=== PATIENT | female | born 1955 | race Hispanic/Latino ===

== ENCOUNTER 2018-03-29 00:57 | Inpatient (IN) | payer OTHER ==
[~2018-03-29 00:57] MED LIST: AMIDATE IV ONE; ZEMURON IV ONE
[2018-03-29 01:52] LABS: Basophils # (Auto) 0.1 K/mm3 (0.0-0.1); Eosinophils # (Auto) 0.2 K/mm3 (0.0-0.4); Eosinophils % (Auto) 2.3 % (0.0-4.3); Hematocrit 39.3 % (30.3-42.9); Hemoglobin 13.3 gm/dl (10.1-14.3); Lymphocytes # (Auto) 1.9 K/mm3 (1.2-5.4); Lymphocytes % (Auto) 22.4 % (13.4-35.0); Mean Corpuscular HGB Conc 34 % (30-34); Mean Corpuscular Hemoglobin 30 pg (28-32); Mean Corpuscular Volume 88 fl (79-97); Monocytes # (Auto) 0.5 K/mm3 (0.0-0.8); Platelet Count 168 K/mm3 (140-440); Red Blood Count 4.47 M/mm3 (3.65-5.03); Red Cell Distribution Width 13.8 % (13.2-15.2)
[2018-03-29 02:03] LABS: BUN/Creatinine Ratio 19; Blood Urea Nitrogen 15 mg/dL (7-17); Calcium 8.7 mg/dL (8.4-10.2); Hemolysis Index 7
[2018-03-29] MEDS ORDERED: NARCAN 0.4 MG/1 ML IV ONE (02:58)
[2018-03-29 03:07] LABS: Bilirubin,Urine NEG (Negative); Blood,Urine NEG (Negative); Color,Urine Yellow (Yellow); Protein,Urine <15 mg/dL mg/dL (Negative); RBC,Urine < 1.0 /HPF (0.0-6.0); Urobilinogen,Urine < 2.0 mg/dL (<2.0)
[2018-03-29 03:15] LABS: Amphetamine Screen,Urine PRESUMPTIVE NEGATIVE; Cocaine Screen,Urine PRESUMPTIVE NEGATIVE; Methadone Screen,Urine PRESUMPTIVE NEGATIVE
[2018-03-29 03:46] LABS: Benzodiazepines Screen,Urine PRESUMPTIVE POSITIVE; Cannabinoid Screen,Urine PRESUMPTIVE POSITIVE; Opiate Screen,Urine PRESUMPTIVE POSITIVE
--- NOTE | 2018-03-29 03:47 | XRay Report ---
FINAL REPORT EXAM: XR CHEST 1V AP HISTORY: POST INTUBATION TECHNIQUE: A portable view of the chest was obtained. There are no previous studies available for comparison. FINDINGS: The tip of the ET tube is 2 cm above the jennifre. There is an NG tube in good position in the body of the stomach. The heart size is normal. The lungs are not congested. There are no localized infiltrates or effusions. The skeletal structures reveal generalized osteoporosis. IMPRESSION: Satisfactory intubation and placement of NG tube. No evidence of congestion or infiltrates.
[2018-03-29 04:14] LABS: INR 0.74 (0.87-1.13)
[2018-03-29 04:15] LABS: Partial Thromboplastin Time 21.6 Sec. (24.2-36.6)
[2018-03-29] MEDS: COMPAZINE IV ONE ×2 (04:29→04:33)
--- NOTE | 2018-03-29 04:52 | Emergency Department Report ---
History of Present Illness - General Chief Complaint: Overdose Stated Complaint: POSSIBLE OD Time Seen by Provider: 03/29/18 01:35 Source: EMS Mode of arrival: Ambulatory Limitations: Altered Mental Status - History of Present Illness Initial Comments: Patient brought to ER with concerns overdosed on gabapentin and benzos Complaint: intentional overdose - Related Data Allergies Allergy/AdvReac Type Severity Reaction Status Date / Time No Known Allergies Allergy Verified 03/29/18 03:18 ED Review of Systems ROS: Stated complaint: POSSIBLE OD Other details as noted in HPI Comment: Unobtainable due to pts medical conditions ED Past Medical Hx - Social History Smoking Status: Unknown if ever smoked Substance Use Type: Prescribed ED Physical Exam - General Limitations: Altered Mental Status - Other Other exam information: GENERAL: Patient in acute distress, lethargic HEAD: Normocephalic, atraumatic EYES: PERRLA, EOM intact HEART: Regular rate and rhythm, no murmur, S1-S2 are auscultated, pulses are symmetric LUNGS: bilateral breath sounds. No wheezing, rales, rhonchi ABDOMEN: Normal bowel sounds, no tenderness, no rebound, no guarding, no masses , no CVA tenderness MUSCULOSKELETAL: Normal joint range of motion, no redness, no swelling, no tenderness NEUROLOGIC: GCS 8, gross sensation/motor intact SKIN: Skin is warm and dry, no wounds, no rashes ED Course Vital Signs 03/29/18 03/29/18 03/29/18 01:06 01:37 02:24 Temperature 98.2 F Pulse Rate 59 L 70 Respiratory 16 19 18 Rate Blood Pressure 137/78 152/92 O2 Sat by Pulse 96 95 97 Oximetry 03/29/18 03/29/18 03/29/18 03:30 04:05 06:05 Temperature Pulse Rate 90 95 H 94 H Respiratory Rate Blood Pressure 149/89 195/125 93/69 O2 Sat by Pulse 100 100 99 Oximetry - Intubation Time Out Performed: Yes Sedative: Etomidate Paralytic: Rocuronium Laryngoscope: Rosemary Size: 4 ET Tube Size: 7.5 Tube Secured Depth (cm): 22 Tube Secured Location: lips Tube Placement Confirmation: visualized tube passing t, equal breath sounds bilat, no breath sounds over epi, confirmation by capnometr Patient Tolerated Procedure: well Intubation Complications: none ED Medical Decision Making - Lab Data Result diagrams: 03/29/18 01:26 03/29/18 01:26 - EKG Data Interpretation: no acute changes - Radiology Data Radiology results: report reviewed - Medical Decision Making At 0634 Dr. Elizondo hospitalists accepts admission. Critical Care Time: Yes Critical care time in (mins) excluding proc time.: 35 Critical care attestation.: If time is entered above; I have spent that time in minutes in the direct care of this critically ill patient, excluding procedure time. ED Disposition Clinical Impression: Suicidal intent Overdose Qualifiers: Encounter type: initial encounter Injury intent: intentional self-harm Qualified Code(s): T50.902A - Poisoning by unspecified drugs, medicaments and biological substances, intentional self-harm, initial encounter Disposition: DC-09 OP ADMIT IP TO THIS HOSP Is pt being admited?: Yes Condition: Critical Time of Disposition: 06:33
[2018-03-29] MEDS ORDERED: DIPRIVAN 10 MG/ML 1,000 MG/100 ML BOTTLE IV ONE (05:09)
[2018-03-29] MEDS ORDERED: VASELINE LIP THERAPY TP PRN (05:10)
[2018-03-29] MEDS ORDERED: ARTIFICIAL TEARS OPHTH OINT OU PRN (05:10)
--- NOTE | 2018-03-29 05:14 | Cat Scan Report ---
FINAL REPORT EXAM: CT HEAD/BRAIN WO CON HISTORY: Alterted Mental Status TECHNIQUE: Routine axial imaging was obtained of the brain without IV contrast. FINDINGS: There is age related volume loss. The ventricular system is appropriate in size and is symmetric. There is no evidence of acute stroke or hemorrhage. There are no extra-axial fluid collections. The sinuses reveal mild mucosal thickening in the maxillary, ethmoidal and sphenoid sinuses. The mastoid air cells are well pneumatized. The calvarium appears intact. IMPRESSION: Age related volume loss. No acute intracranial process. Mild sinusitis.
[2018-03-29] MEDS ORDERED: DIPRIVAN 10 MG/ML 1,000 MG/100 ML BOTTLE IV SCH (06:00)
[2018-03-29] MEDS ORDERED: NACL 0.9% 1000 ML 1,000 ML ONE ×2 (07:23→14:08)
[2018-03-29] MEDS ORDERED: VERSED IV ONE (07:35)
[2018-03-29] MEDS ORDERED: VERSED IV NR (07:40)
[2018-03-29] MEDS ORDERED: NACL 0.9% 1000 ML 1,000 ML IV ONE ×3 (07:48→14:52)
[2018-03-29] MEDS ORDERED: SUBLIMAZE IV ONE (07:55)
[2018-03-29] MEDS ORDERED: MIDAZOLAM 100 MG in NACL 0.9% 80 ML IV SCH (08:00)
[2018-03-29] MEDS ORDERED: fentaNYL DRIP Premix 2,000 MCG/100 ML BAG IV SCH (08:00)
--- NOTE | 2018-03-29 08:38 | History and Physical Report ---
History of Present Illness Date of examination: 03/29/18 Date of admission: 03/29/18 06:36 Chief complaint: AMS History of present illness: Patient is a 62 yo woman who presented to [facility] via EMS for AMS. Patient was found at home unresponsive. Family stated it could be possible OD on Xanex or clonopin, but not sure, EMS gave 2mg narcan. Patient 96% on 3 liters O2, Upon arrival patient responsive to painful stimuli and mumbling unclear words per Triage note. This is patient first hospitalization in our EMR. PMH: unable to obtain with ETT place PSH: unable to obtain with ETT place SH: unable to obtain with ETT place FH: unable to obtain with ETT place ROS: unable to obtain with ETT in place Medications and Allergies Allergies Allergy/AdvReac Type Severity Reaction Status Date / Time No Known Allergies Allergy Verified 03/29/18 03:18 Home Medications Medication Instructions Recorded Confirmed Last Taken Type Unobtainable 03/29/18 03/29/18 Unknown History Active Meds: Active Medications Hydrophilic Ointment (Vaseline Lip Therapy) 1 applic TP Q2HR PRN PRN Reason: Dry Lips Sodium Chloride (Nacl 0.9% 1000 Ml) 1,000 mls @ 999 mls/hr IV BOLUS ONE Stop: 03/29/18 08:48 Last Admin: 03/29/18 07:26 Dose: 999 mls/hr Fentanyl Citrate (Fentanyl Drip Premix) 2,000 mcg in 100 mls @ 3.515 mls/hr IV TITR JACIEL; Protocol Last Admin: 03/29/18 08:00 Dose: 1 mcg/kg/hr, 3.515 mls/hr Midazolam HCl 100 mg/ Sodium (Chloride) 100 mls @ 2 mls/hr IV TITR JACIEL; Protocol Last Admin: 03/29/18 08:25 Dose: 2 mg/hr, 2 mls/hr Sodium Chloride (Nacl 0.9% 1000 Ml) 1,000 mls @ 999 mls/hr IV BOLUS ONE Stop: 03/29/18 08:56 Last Admin: 03/29/18 08:25 Dose: 999 mls/hr Midazolam HCl (Versed) 2 mg IV ONCE NR Stop: 03/29/18 09:00 Last Admin: 03/29/18 07:47 Dose: 2 mg Multi-Ingred Cream/Lotion/Oil/Oint (Artificial Tears Ophth Oint) 1 applic OU Q4HR PRN PRN Reason: Dry Eye(s) Exam - Physical Exam Narrative exam: GEN: ill appearing, intubated and sedated with fentanyl and versed HEENT: NCAT, ETT and NGT in place NECK: supple, no adenopathy, no thyromegaly, no JVD CVS/HEART: RRR, normal S1S2, pulses present bilaterally CHEST/LUNGS: Symmetrical chest expansion, good air entry bilaterally GI/Abdomen: soft, NTND, good bowel sounds, no guarding or rebound /Bladder: no suprapubic tenderness, no CVA or paraspinal tenderness EXT/Skin: no c/c/e, no obvious rash MSK: unable to access Neuro: unable to access Psych: unable to access - Constitutional Vitals: Temp Pulse Resp BP Pulse Ox 98.4 F 94 H 16 122/77 97 03/29/18 07:14 03/29/18 07:57 03/29/18 07:57 03/29/18 07:57 03/29/18 07:57 Results - Labs CBC & Chem 7: 03/29/18 01:26 03/29/18 01:26 Labs: Abnormal lab results 03/29/18 03/29/18 03/29/18 Range/Units 01:26 01:26 03:47 PT 10.8 L (12.2-14.9) Sec. INR 0.74 L (0.87-1.13) APTT 21.6 L (24.2-36.6) Sec. POC ABG pO2 (80-105) Salicylates < 0.3 L (2.8-20.0) mg/dL Acetaminophen < 5.0 L (10.0-30.0) ug/mL 03/29/18 Range/Units 04:05 PT (12.2-14.9) Sec. INR (0.87-1.13) APTT (24.2-36.6) Sec. POC ABG pO2 221 H (80-105) Salicylates (2.8-20.0) mg/dL Acetaminophen (10.0-30.0) ug/mL Assessment and Plan Patient is a 62 yo woman who presented to [facility] via EMS for AMS. Patient was found at home unresponsive. Family stated it could be possible OD on Xanex or clonopin, but not sure, EMS gave 2mg narcan. Patient 96% on 3 liters O2, Upon arrival patient responsive to painful stimuli and mumbling unclear words per Triage note. This is patient first hospitalization in our EMR. Meet with son Mitch and "" Darrius at bedside: Patient has history of hypertension, migraines, GERD arthritis of the hands s/p bilateral carpal tunnel syndrome, ex smoker, street drug Xanax use. Daughter Danica also lives with patient and has drug addiction according to her brother Mitch and Darrius. 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 Lindsey Garcia gave patient 60 tablets of Clonazepam on 01/29/18, 60 tablets for percocet on 01/29/18 and 60 tablets of Clonzepam again on 03/05/18 * CT head without contrast reported age related volume loss, no acute intracranial process, mild sinusitis (maxillary, ethmoid, sphenoid) * pCXR satisfactory intubation and placement of NG tube, no evidence of congestion or infiltrates * UDS positive for benzodiazepines,opiates, marijuana. -Acute respiratory failure s/p Intubation in ED: consult Pulmonology, closely monitor O2 saturation -Acute toxic encephalopathy with AMS due to suspected drug overdose -Nausea/Vomiting: treat with antiemetics -Abnormal EKG, SR 89, V3-v5 ST Depression: consult Cardiology, repeat troponin -Polysubstance abuse suspected, uses street Xanax -DVT prophylaxis: scd and sq heparin full code CCT 35 minutes
[2018-03-29] MEDS ORDERED: ZOFRAN IV PRN (09:13)
[2018-03-29] MEDS: PROTONIX IV SCH ×2 (10:36→21:58)
--- NOTE | 2018-03-29 11:13 | Consultation ---
History of Present Illness Consult date: 03/29/18 Requesting physician: ELIZ BUCIO Consult reason: other (abnormal EKG) History of present illness: Patient is a 62-year-old was found unresponsive at home. Patient is currently intubated and hemodynamically stable. Working diagnosis was possible overdose with Xanax. Patient was noted to have sinus bradycardia with ST depressions and hence cardiology is being consulted. No further history could be obtained and the patient. Past History Past Medical History: other (could not be obtained) Medications and Allergies Allergies Allergy/AdvReac Type Severity Reaction Status Date / Time No Known Allergies Allergy Verified 03/29/18 03:18 Home Medications Medication Instructions Recorded Confirmed Last Taken Type Unobtainable 03/29/18 03/29/18 Unknown History Active Meds: Active Medications Heparin Sodium (Porcine) (Heparin) 5,000 unit SUB-Q Q12HR JACIEL Hydrophilic Ointment (Vaseline Lip Therapy) 1 applic TP Q2HR PRN PRN Reason: Dry Lips Fentanyl Citrate (Fentanyl Drip Premix) 2,000 mcg in 100 mls @ 3.515 mls/hr IV TITR JACIEL; Protocol Last Admin: 03/29/18 08:00 Dose: 1 mcg/kg/hr, 3.515 mls/hr Midazolam HCl 100 mg/ Sodium (Chloride) 100 mls @ 2 mls/hr IV TITR JACIEL; Protocol Last Admin: 03/29/18 08:25 Dose: 2 mg/hr, 2 mls/hr Multi-Ingred Cream/Lotion/Oil/Oint (Artificial Tears Ophth Oint) 1 applic OU Q4HR PRN PRN Reason: Dry Eye(s) Ondansetron HCl (Zofran) 4 mg IV Q4H PRN PRN Reason: Nausea And Vomiting Pantoprazole Sodium (Protonix) 40 mg IV BID JACIEL Last Admin: 03/29/18 10:36 Dose: 40 mg Review of Systems ROS unobtainable: due to endotracheal tube Physical Examination Vital Signs Temp Pulse Resp BP Pulse Ox 98.2 F 59 L 16 137/78 96 03/29/18 01:06 03/29/18 01:06 03/29/18 01:06 03/29/18 01:06 03/29/18 01:06 Narrative exam: General: Patient intubated Head: Normocephalic, atraumatic Eyes: normal sclera ENT: Mucous membranes moist Neck: trachea midline Respiratory: Breath sounds equal bilaterally, no wheezing, rales, or rhonchi Cardio: S1 and S2 present, no murmurs, rubs, gallops, Abdomen: Normoactive bowel sounds, soft abdomen, Musc: No pitting edema Skin: No rash Results 03/29/18 01:26 03/29/18 01:26 Coagulation 03/29/18 Range/Units 03:47 PT 10.8 L (12.2-14.9) Sec. INR 0.74 L (0.87-1.13) APTT 21.6 L (24.2-36.6) Sec. CBC 03/29/18 Range/Units 01:26 WBC 8.4 (4.5-11.0) K/mm3 RBC 4.47 (3.65-5.03) M/mm3 Hgb 13.3 (10.1-14.3) gm/dl Hct 39.3 (30.3-42.9) % Plt Count 168 (140-440) K/mm3 Lymph # 1.9 (1.2-5.4) K/mm3 Cloud # 0.5 (0.0-0.8) K/mm3 Eos # 0.2 (0.0-0.4) K/mm3 Baso # 0.1 (0.0-0.1) K/mm3 Comprehensive Metabolic Panel 03/29/18 Range/Units 01:26 Sodium 137 (137-145) mmol/L Potassium 4.4 (3.6-5.0) mmol/L Chloride 101.2 (98-107) mmol/L Carbon Dioxide 28 (22-30) mmol/L BUN 15 (7-17) mg/dL Creatinine 0.8 (0.7-1.2) mg/dL Glucose 99 (65-100) mg/dL Calcium 8.7 (8.4-10.2) mg/dL EKG interpretations - EKG Sinus rhythms and dysrhythmias: sinus rhythm Assessment and Plan Impression Change in mental status secondary to drug overdose Respiratory failure status post intubation Abnormal EKG Plan Supportive care 2-D echo We'll continue to follow along with you
[2018-03-29 13:51] LABS: Chol/HDL Ratio 6.08 %
--- NOTE | 2018-03-29 17:34 | Consultation ---
History of Present Illness Consult date: 03/29/18 Requesting physician: ELZI BUCIO Reason for consult: other (Overdose on Benzo) History of present illness: 62 y/o female brought in by EMS after being found down and concern for overdose with benzos. Past History Past Medical History: other (could not be obtained) Past Surgical History: Other (unable to be obtained) Social history: other (unable to be obtained) Family history: other (unable to be obtained) Medications and Allergies Allergies Allergy/AdvReac Type Severity Reaction Status Date / Time No Known Allergies Allergy Verified 03/29/18 03:18 Home Medications Medication Instructions Recorded Confirmed Last Taken Type Unobtainable 03/29/18 03/29/18 Unknown History Active Meds: Active Medications Heparin Sodium (Porcine) (Heparin) 5,000 unit SUB-Q Q12HR JACIEL Hydrophilic Ointment (Vaseline Lip Therapy) 1 applic TP Q2HR PRN PRN Reason: Dry Lips Fentanyl Citrate (Fentanyl Drip Premix) 2,000 mcg in 100 mls @ 3.515 mls/hr IV TITR JACIEL; Protocol Last Titration: 03/29/18 14:30 Dose: 0 mcg/kg/hr, 0 mls/hr Midazolam HCl 100 mg/ Sodium (Chloride) 100 mls @ 2 mls/hr IV TITR JACIEL; Protocol Last Titration: 03/29/18 14:30 Dose: 0 mg/hr, 0 mls/hr Multi-Ingred Cream/Lotion/Oil/Oint (Artificial Tears Ophth Oint) 1 applic OU Q4HR PRN PRN Reason: Dry Eye(s) Ondansetron HCl (Zofran) 4 mg IV Q4H PRN PRN Reason: Nausea And Vomiting Pantoprazole Sodium (Protonix) 40 mg IV BID JACIEL Last Admin: 03/29/18 10:36 Dose: 40 mg Review of Systems ROS unobtainable: due to endotracheal tube, due to mental status Physical Examination Vital signs: Vital Signs Temp Pulse Resp BP Pulse Ox 98.2 F 59 L 16 137/78 96 03/29/18 01:06 03/29/18 01:06 03/29/18 01:06 03/29/18 01:06 03/29/18 01:06 General appearance: other (orally intubated and sedated.) Eyes: non-icteric ENT: other (orally intubated) Neck: other Effort: normal Ascultation: Bilateral: clear Percussion: Bilateral: not dull Cardiovascular: regular rate and rhythm Gastrointestinal: normoactive bowel sounds, soft, non-tender Extremities: no edema, pink and warm Musculoskeletal: no deformities unable to assess Results - Laboratory Findings CBC and BMP: 03/29/18 01:26 03/29/18 01:26 ABG POC ABG pH 7.436 (7.35-7.45) 03/29/18 04:05 POC ABG pCO2 36.8 (35-45) 03/29/18 04:05 POC ABG pO2 221 (80-105) H 03/29/18 04:05 POC ABG HCO3 24.7 03/29/18 04:05 POC ABG Total CO2 26 03/29/18 04:05 POC ABG O2 Sat 100 03/29/18 04:05 PT/INR, D-dimer PT 10.8 Sec. (12.2-14.9) L 03/29/18 03:47 INR 0.74 (0.87-1.13) L 03/29/18 03:47 Abnormal lab findings: Abnormal Labs 03/29/18 03/29/18 03/29/18 01:26 01:26 03:47 PT 10.8 L INR 0.74 L APTT 21.6 L POC ABG pO2 Troponin T Triglycerides Cholesterol LDL Cholesterol Direct HDL Cholesterol Salicylates < 0.3 L Acetaminophen < 5.0 L 03/29/18 03/29/18 04:05 13:09 PT INR APTT POC ABG pO2 221 H Troponin T 0.749 H* D Triglycerides 196 H Cholesterol 219 H LDL Cholesterol Direct 169 H HDL Cholesterol 36 L Salicylates Acetaminophen - Diagnostic Findings Chest x-ray: image reviewed (no acute pulmonary dieases seen) Assessment and Plan 62 y/o female with possible suicide attempt and overdose with benzo's. 1. patient started on sedation after intubation. Not sure why. No GCS documented that I can find. Will stop all sedation and extubate 2. Nees psych consult once extubated 3. 1:1 care and patient will need to be 1013 CCT 31 minutes.
--- NOTE | 2018-03-30 03:21 | XRay Report ---
FINAL REPORT PROCEDURE: XR CHEST 1V AP TECHNIQUE: Chest radiograph anteroposterior view. CPT 62471 HISTORY: follow up respiratory failure COMPARISON: 03/29/2018 FINDINGS: Heart: Normal. Mediastinum/Vessels: Normal. Lungs/Pleural space: Normal. Bony thorax: No acute osseous abnormality. Life support devices: None. IMPRESSION: No acute cardiopulmonary abnormality.
[2018-03-30 04:51] LABS: Hematocrit 38.6 % (30.3-42.9); Mean Corpuscular HGB Conc 34 % (30-34); Mean Corpuscular Hemoglobin 30 pg (28-32); Mean Corpuscular Volume 88 fl (79-97); Platelet Count 157 K/mm3 (140-440); Red Blood Count 4.39 M/mm3 (3.65-5.03); Red Cell Distribution Width 14.1 % (13.2-15.2)
[2018-03-30 04:55] LABS: Calcium 7.6 mg/dL (8.4-10.2)
[2018-03-30] MEDS: HEPARIN SUB-Q SCH ×2 (09:18→22:10)
[2018-03-30] MEDS: PROTONIX IV SCH ×2 (09:19→22:10)
--- NOTE | 2018-03-30 11:03 | Progress Note ---
Assessment and Plan Assessment and plan: Patient is a 62 yo woman who presented to [facility] via EMS for AMS. Patient was found at home unresponsive. Family stated it could be possible OD on Xanex or clonopin, but not sure, EMS gave 2mg narcan. Patient 96% on 3 liters O2, Upon arrival patient responsive to painful stimuli and mumbling unclear words per Triage note. This is patient first hospitalization in our EMR. Meet with son Mitch and "" Darrius at bedside: Patient has history of hypertension, migraines, GERD arthritis of the hands s/p bilateral carpal tunnel syndrome, ex smoker, street drug Xanax use. Daughter Danica also lives with patient and has drug addiction according to her brother Mitch and Darrius. 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 Lindsey Garcia gave patient 60 tablets of Clonazepam on 01/29/18, 60 tablets for percocet on 01/29/18 and 60 tablets of Clonzepam again on 03/05/18 * CT head without contrast reported age related volume loss, no acute intracranial process, mild sinusitis (maxillary, ethmoid, sphenoid) * pCXR satisfactory intubation and placement of NG tube, no evidence of congestion or infiltrates * UDS positive for benzodiazepines,opiates, marijuana. -Acute respiratory failure s/p Intubation in ED: consult Pulmonology, closely monitor O2 saturation -Acute toxic encephalopathy with AMS due to suspected drug overdose -Nausea/Vomiting: treat with antiemetics -Abnormal EKG, SR 89, V3-v5 ST Depression: consult Cardiology, repeat troponin -Polysubstance abuse suspected, uses street Xanax -DVT prophylaxis: scd and sq heparin full code History Interval history: Patient was seen and examined. Follow-up on current diagnosis respiratory failure due to drug overdose. Overnight uneventful. Patient denies any chest pain, shortness breath, nausea/vomiting or severe headaches. Imaging, nursing note, chart, labs and old chart reviewed. Discussed with patient. Extubated , doing well. Says she overdose unintentional on Xanax from a "friend" while still taking her prescribe Clonazepam. She denies SI. Hospitalist Physical - Physical exam Narrative exam: GEN: WDWN, NAD, Awake, Alert, Orientated x 3, extubated 03/29/18 HEENT: NCAT, EOMI, PERRL, OP Clear NECK: supple, no adenopathy, no thyromegaly, no JVD CVS/HEART: RRR, normal S1S2, pulses present bilaterally CHEST/LUNGS: CTA B, Symmetrical chest expansion, good air entry bilaterally GI/Abdomen: soft, NTND, good bowel sounds, no guarding or rebound /Bladder: no suprapubic tenderness, no CVA or paraspinal tenderness EXT/Skin: no c/c/e, no obvious rash MSK: FROM x 4 Neuro: CN 2-12 grossly intact, no new focal deficits Psych: calm - Constitutional Vitals: Temp Pulse Resp BP Pulse Ox 98.8 F 90 16 136/77 97 03/30/18 08:00 03/30/18 10:21 03/30/18 10:21 03/30/18 10:21 03/30/18 10:21 Results - Labs CBC & Chem 7: 03/30/18 04:01 03/30/18 04:01 Labs: Laboratory Last Values WBC 17.7 K/mm3 (4.5-11.0) H 03/30/18 04:01 RBC 4.39 M/mm3 (3.65-5.03) 03/30/18 04:01 Hgb 13.0 gm/dl (10.1-14.3) 03/30/18 04:01 Hct 38.6 % (30.3-42.9) 03/30/18 04:01 MCV 88 fl (79-97) 03/30/18 04:01 MCH 30 pg (28-32) 03/30/18 04:01 MCHC 34 % (30-34) 03/30/18 04:01 RDW 14.1 % (13.2-15.2) 03/30/18 04:01 Plt Count 157 K/mm3 (140-440) 03/30/18 04:01 Lymph % (Auto) 22.4 % (13.4-35.0) 03/29/18 01:26 [place] % (Auto) 6.0 % (0.0-7.3) 03/29/18 01:26 Eos % (Auto) 2.3 % (0.0-4.3) 03/29/18 01:26 Baso % (Auto) 1.0 % (0.0-1.8) 03/29/18 01:26 Lymph # 1.9 K/mm3 (1.2-5.4) 03/29/18 01:26 [place] # 0.5 K/mm3 (0.0-0.8) 03/29/18 01: Eos # 0.2 K/mm3 (0.0-0.4) 03/29/18 01:26 Baso # 0.1 K/mm3 (0.0-0.1) 03/29/18 01:26 Seg Neutrophils % 68.3 % (40.0-70.0) 03/29/18 01: Seg Neutrophils # 5.7 K/mm3 (1.8-7.7) 03/29/18 01:26 PT 10.8 Sec. (12.2-14.9) L 03/29/18 03:47 INR 0.74 (0.87-1.13) L 03/29/18 03:47 APTT 21.6 Sec. (24.2-36.6) L 03/29/18 03:47 POC ABG pH 7.436 (7.35-7.45) 03/29/18 04:05 POC ABG pCO2 36.8 (35-45) 03/29/18 04:05 POC ABG pO2 221 (80-105) H 03/29/18 04:05 POC ABG HCO3 24.7 03/29/18 04:05 POC ABG Total CO2 26 03/29/18 04:05 POC ABG O2 Sat 100 03/29/18 04:05 POC ABG Base Excess 1 03/29/18 04:05 FiO2 80 % 03/29/18 04:05 Sodium 142 mmol/L (137-145) 03/30/18 04:01 Potassium 4.2 mmol/L (3.6-5.0) 03/30/18 04:01 Chloride 102.6 mmol/L (98-107) 03/30/18 04:01 Carbon Dioxide 22 mmol/L (22-30) 03/30/18 04:01 Anion Gap 22 mmol/L 03/30/18 04:01 BUN 19 mg/dL (7-17) H 03/30/18 04:01 Creatinine 1.0 mg/dL (0.7-1.2) 03/30/18 04:01 Estimated GFR 56 ml/min 03/30/18 04:01 BUN/Creatinine Ratio 19 % 03/30/18 04:01 Glucose 111 mg/dL (65-100) H 03/30/18 04:01 POC Glucose 95 (70-105) 03/29/18 03:09 Calcium 7.6 mg/dL (8.4-10.2) L 03/30/18 04:01 Ammonia 45.0 umol/L (25-60) 03/29/18 03:47 Total Creatine Kinase 72 units/L (30-135) 03/29/18 03:47 Troponin T 0.378 ng/mL (0.00-0.029) H* D 03/29/18 18:15 Triglycerides 196 mg/dL (2-149) H 03/29/18 13:09 Cholesterol 219 mg/dL (50-199) H 03/29/18 13:09 LDL Cholesterol Direct 169 mg/dL (50-130) H 03/29/18 13:09 HDL Cholesterol 36 mg/dL (40-59) L 03/29/18 13:09 Cholesterol/HDL Ratio 6.08 % 03/29/18 13:09 TSH 0.720 mlU/mL (0.270-4.200) 03/30/18 04:01 Urine Color Yellow (Yellow) 03/29/18 02:50 Urine Turbidity Clear (Clear) 03/29/18 02:50 Urine pH 6.0 (5.0-7.0) 03/29/18 02:50 Ur Specific [place] 1.009 (1.003-1.030) 03/29/18 02:50 Urine Protein <15 mg/dl mg/dL (Negative) 03/29/18 02:50 Urine Glucose (UA) Neg mg/dL (Negative) 03/29/18 02:50 Urine Ketones Neg mg/dL (Negative) 03/29/18 02:50 Urine Blood Neg (Negative) 03/29/18 02:50 Urine Nitrite Neg (Negative) 03/29/18 02:50 Urine Bilirubin Neg (Negative) 03/29/18 02:50 Urine Urobilinogen < 2.0 mg/dL (<2.0) 03/29/18 02:50 Ur Leukocyte Esterase Neg (Negative) 03/29/18 02:50 Urine WBC (Auto) 1.0 /HPF (0.0-6.0) 03/29/18 02:50 Urine RBC (Auto) < 1.0 /HPF (0.0-6.0) 03/29/18 02:50 Salicylates < 0.3 mg/dL (2.8-20.0) L 03/29/18 01:26 Urine Opiates Screen Presumptive positive 03/29/18 02:50 Urine Methadone Screen Presumptive negative 03/29/18 02:50 Acetaminophen < 5.0 ug/mL (10.0-30.0) L 03/29/18 01:26 Ur Barbiturates Screen Presumptive negative 03/29/18 02:50 Ur Phencyclidine Scrn Presumptive negative 03/29/18 02:50 Ur Amphetamines Screen Presumptive negative 03/29/18 02:50 U Benzodiazepines Scrn Presumptive positive 03/29/18 02:50 Urine Cocaine Screen Presumptive negative 03/29/18 02:50 U Marijuana (THC) Screen Presumptive positive 03/29/18 02:50 Drugs of Abuse Note Disclamer 03/29/18 02:50 Plasma/Serum Alcohol < 0.01 % (0-0.07) 03/29/18 01:26
--- NOTE | 2018-03-30 11:46 | Progress Note ---
Assessment and Plan Impression Change in mental status secondary to drug overdose much improved Respiratory failure status post intubation, extubated now Abnormal EKG [place] Elevated troponins Plan Supportive care 2-D echo Stress test prior to DC Subjective Date of service: 03/30/18 Principal diagnosis: Xanax overdose Interval history: Patient extubated looks much better no chest pain Objective Vital Signs Temp Pulse Pulse Resp BP Pulse Ox 03/30/18 10:21 90 16 136/77 97 03/30/18 10:11 93 H 20 136/77 97 03/30/18 10:00 93 H 20 136/77 99 03/30/18 09:52 98 03/30/18 09:51 89 19 136/70 97 03/30/18 09:41 90 16 136/70 99 03/30/18 09:30 91 H 21 136/70 98 03/30/18 09:21 91 H 15 132/78 97 03/30/18 09:11 88 14 132/78 98 03/30/18 09:00 91 H 12 132/78 98 03/30/18 08:51 82 27 H 128/71 96 03/30/18 08:41 80 27 H 128/71 98 03/30/18 08:30 80 24 128/71 99 03/30/18 08:21 80 18 133/71 99 03/30/18 08:11 81 31 H 133/71 96 03/30/18 08:00 98.8 F 86 23 131/72 98 03/30/18 07:51 82 16 133/71 97 03/30/18 07:41 86 29 H 133/71 97 03/30/18 07:30 86 19 133/71 98 03/30/18 07:21 85 14 142/74 99 05 07:11 83 23 142/74 99 03/30/18 07:00 80 26 H 130/73 98 03/30/18 06:51 84 24 142/74 98 03/30/18 06:41 90 28 H 142/74 96 03/30/18 06:31 86 25 H 142/74 97 0518 06:21 86 21 129/71 96 0518 06:11 89 14 129/71 97 03/30/18 06:00 89 16 129/71 97 03/30/18 05:51 96 H 16 122/61 98 08/05/18 05:41 84 31 H 122/61 97 08/05/18 05:30 83 29 H 122/61 98 08/05/18 05:21 88 20 136/82 98 05/18 05:11 87 23 136/82 97 08/05/18 05:00 88 25 H 136/82 98 /05/18 04:51 93 H 16 127/74 97 /05/18 04:41 85 25 H 127/74 95 /05/18 04:30 85 25 H 127/74 95 /05/18 04:21 82 31 H 133/76 94 /05/18 04:11 89 24 133/76 96 /05/18 04:00 84 84 19 133/76 98 /05/18 03:51 86 29 H 137/77 96 /05/18 03:41 88 30 H 137/77 97 /05/18 03:30 87 29 H 137/77 97 /05/18 03:21 87 26 H 143/82 97 /05/18 03:11 89 31 H 143/82 96 /05/18 03:00 88 29 H 143/82 96 /05/18 02:51 96 H 20 134/83 97 /05/18 02:41 95 H 30 H 134/83 96 /05/18 02:30 74 30 H 134/83 95 /05/18 02:21 87 32 H 122/79 95 /05/18 02:11 89 29 H 122/79 96 /05/18 02:00 89 32 H 122/79 95 /05/18 01:51 90 31 H 126/79 95 /05/18 01:41 90 31 H 126/79 95 /05/18 01:30 89 33 H 126/79 95 08/05/18 01:21 89 31 H 128/72 95 08/05/18 01:11 89 30 H 128/72 95 /05/18 01:00 88 29 H 128/72 95 08/05/18 00:51 88 30 H 125/74 95 /05/18 00:41 91 H 29 H 125/74 96 08/05/18 00:30 91 H 35 H 125/74 96 08/05/18 00:21 95 H 18 127/79 96 /05/18 00:11 96 H 16 127/79 98 03/30/18 00:00 95 H 95 H 12 127/79 97 03/29/18 23:50 96 H 33 H 133/79 97 03/29/18 23:40 98 H 21 57/29 03/29/18 23:31 99 H 25 H 113/68 97 03/29/18 23:21 19 127/72 96 03/29/18 23:11 12 73/43 96 03/29/18 23:01 105 H 39 H 127/72 95 03/29/18 22:51 97 H 41 H 127/72 95 03/29/18 22:41 99 H 31 H 127/72 95 03/29/18 22:30 96 H 38 H 127/72 94 03/29/18 22:21 96 H 35 H 123/78 95 03/29/18 22:11 96 H 31 H 123/78 94 03/29/18 22:00 98 H 13 123/78 95 03/29/18 21:51 98 H 18 141/83 97 03/29/18 21:41 99 H 25 H 141/83 94 03/29/18 21:30 103 H 42 H 141/83 94 03/29/18 21:21 100 H 45 H 127/80 94 03/29/18 21:11 102 H 26 H 137/79 95 03/29/18 21:00 99 H 20 137/79 94 03/29/18 20:51 105 H 21 127/80 93 03/29/18 20:48 94 03/29/18 20:41 103 H 39 H 127/80 95 03/29/18 20:30 102 H 35 H 127/80 94 03/29/18 20:21 100 H 28 H 125/70 95 03/29/18 20:11 102 H 33 H 125/70 94 03/29/18 20:00 103 H 103 H 32 H 131/74 93 03/29/18 19:51 101 H 40 H 131/74 94 03/29/18 19:41 104 H 41 H 131/74 93 03/29/18 19:30 101 H 39 H 131/74 90 03/29/18 19:21 104 H 41 H 122/82 93 03/29/18 19:11 109 H 32 H 122/82 93 03/29/18 19:01 104 H 44 H 122/76 92 03/29/18 18:51 104 H 40 H 122/76 94 03/29/18 18:41 104 H 22 122/76 95 03/29/18 18:30 104 H 39 H 122/76 89 03/29/18 18:21 103 H 26 H 134/83 93 03/29/18 18:11 105 H 21 134/83 94 03/29/18 18:00 107 H 44 H 134/83 89 03/29/18 17:51 107 H 43 H 129/82 95 03/29/18 17:41 106 H 42 H 129/82 94 03/29/18 17:30 106 H 22 120/80 93 03/29/18 16:12 93 - Physical Examination Narrative exam: General: Patient alert in no acute distress Head: Normocephalic, atraumatic Eyes: normal sclera ENT: Mucous membranes moist Neck: trachea midline Respiratory: Breath sounds equal bilaterally, no wheezing, rales, or rhonchi Cardio: S1 and S2 present, no murmurs, rubs, gallops, Abdomen: Normoactive bowel sounds, soft abdomen, Musc: No pitting edema Skin: No rash - Labs and Meds Lipids 03/29/18 Range/Units 13:09 Triglycerides 196 H (2-149) mg/dL Cholesterol 219 H (50-199) mg/dL HDL Cholesterol 36 L (40-59) mg/dL Cholesterol/HDL Ratio 6.08 % CBC 03/30/18 Range/Units 04:01 WBC 17.7 H (4.5-11.0) K/mm3 RBC 4.39 (3.65-5.03) M/mm3 Hgb 13.0 (10.1-14.3) gm/dl Hct 38.6 (30.3-42.9) % Plt Count 157 (140-440) K/mm3 Comprehensive Metabolic Panel 03/30/18 Range/Units 04:01 Sodium 142 (137-145) mmol/L Potassium 4.2 (3.6-5.0) mmol/L Chloride 102.6 (98-107) mmol/L Carbon Dioxide 22 (22-30) mmol/L BUN 19 H (7-17) mg/dL Creatinine 1.0 (0.7-1.2) mg/dL Glucose 111 H (65-100) mg/dL Calcium 7.6 L (8.4-10.2) mg/dL - EKG Sinus rhythms and dysrhythmias: sinus rhythm
--- NOTE | 2018-03-30 12:41 | Progress Note ---
Assessment and Plan 62 y/o female with possible suicide attempt and overdose with benzo's. 1. Wean FiO2 for sats >88% 2. Needs Psych consult evaluation 3. Follow up cards recs 4. Stable for transfer out of unit. Will likely sign off once on the floor. Subjective Date of service: 03/30/18 Principal diagnosis: Xanax overdose Interval history: Successful extubation on yesterday. Stable. Currently undergoing 2D echo. Objective Vital Signs - 12hr 03/30/18 03/30/18 03/30/18 00:41 00:51 01:00 Temperature Pulse Rate 91 H 88 88 Pulse Rate [ From Monitor] Respiratory 29 H 30 H 29 H Rate Blood Pressure 125/74 125/74 128/72 O2 Sat by Pulse 96 95 95 Oximetry 03/30/18 03/30/18 03/30/18 01:11 01:21 01:30 Temperature Pulse Rate 89 89 89 Pulse Rate [ From Monitor] Respiratory 30 H 31 H 33 H Rate Blood Pressure 128/72 128/72 126/79 O2 Sat by Pulse 95 95 95 Oximetry 03/30/18 03/30/18 03/30/18 01:41 01:51 02:00 Temperature Pulse Rate 90 90 89 Pulse Rate [ From Monitor] Respiratory 31 H 31 H 32 H Rate Blood Pressure 126/79 126/79 122/79 O2 Sat by Pulse 95 95 95 Oximetry 03/30/18 03/30/18 03/30/18 02:11 02:21 02:30 Temperature Pulse Rate 89 87 74 Pulse Rate [ From Monitor] Respiratory 29 H 32 H 30 H Rate Blood Pressure 122/79 122/79 134/83 O2 Sat by Pulse 96 95 95 Oximetry 03/30/18 03/30/18 03/30/18 02:41 02:51 03:00 Temperature Pulse Rate 95 H 96 H 88 Pulse Rate [ From Monitor] Respiratory 30 H 20 29 H Rate Blood Pressure 134/83 134/83 143/82 O2 Sat by Pulse 96 97 96 Oximetry 03/30/18 03/30/18 03/30/18 03:11 03:21 03:30 Temperature Pulse Rate 89 87 87 Pulse Rate [ From Monitor] Respiratory 31 H 26 H 29 H Rate Blood Pressure 143/82 143/82 137/77 O2 Sat by Pulse 96 97 97 Oximetry 08/05/18 08/05/18 08/05/18 03:41 03:51 04:00 Temperature Pulse Rate 88 86 84 Pulse Rate [ 84 From Monitor] Respiratory 30 H 29 H 19 Rate Blood Pressure 137/77 137/77 133/76 O2 Sat by Pulse 97 96 98 Oximetry 03/30/18 03/30/18 03/30/18 04:11 04:21 04:30 Temperature Pulse Rate 89 82 85 Pulse Rate [ From Monitor] Respiratory 24 31 H 25 H Rate Blood Pressure 133/76 133/76 127/74 O2 Sat by Pulse 96 94 95 Oximetry 03/30/18 03/30/18 03/30/18 04:41 04:51 05:00 Temperature Pulse Rate 85 93 H 88 Pulse Rate [ From Monitor] Respiratory 25 H 16 25 H Rate Blood Pressure 127/74 127/74 136/82 O2 Sat by Pulse 95 97 98 Oximetry 03/30/18 03/30/18 03/30/18 05:11 05:21 05:30 Temperature Pulse Rate 87 88 83 Pulse Rate [ From Monitor] Respiratory 23 20 29 H Rate Blood Pressure 136/82 136/82 122/61 O2 Sat by Pulse 97 98 98 Oximetry 03/30/18 03/30/18 03/30/18 05:41 05:51 06:00 Temperature Pulse Rate 84 96 H 89 Pulse Rate [ From Monitor] Respiratory 31 H 16 16 Rate Blood Pressure 122/61 122/61 129/71 O2 Sat by Pulse 97 98 97 Oximetry 03/30/18 03/30/18 03/30/18 06:11 06:21 06:31 Temperature Pulse Rate 89 86 86 Pulse Rate [ From Monitor] Respiratory 14 21 25 H Rate Blood Pressure 129/71 129/71 142/74 O2 Sat by Pulse 97 96 97 Oximetry 03/30/18 03/30/18 03/30/18 06:41 06:51 07:00 Temperature Pulse Rate 90 84 80 Pulse Rate [ From Monitor] Respiratory 28 H 24 26 H Rate Blood Pressure 142/74 142/74 130/73 O2 Sat by Pulse 96 98 98 Oximetry 03/30/18 03/30/18 03/30/18 07:11 07:21 07:30 Temperature Pulse Rate 83 85 86 Pulse Rate [ From Monitor] Respiratory 23 14 19 Rate Blood Pressure 142/74 142/74 133/71 O2 Sat by Pulse 99 99 98 Oximetry 03/30/18 03/30/18 03/30/18 07:41 07:51 08:00 Temperature 98.8 F Pulse Rate 86 82 86 Pulse Rate [ From Monitor] Respiratory 29 H 16 23 Rate Blood Pressure 133/71 133/71 131/72 O2 Sat by Pulse 97 97 98 Oximetry 03/30/18 03/30/18 03/30/18 08:11 08:21 08:30 Temperature Pulse Rate 81 80 80 Pulse Rate [ From Monitor] Respiratory 31 H 18 24 Rate Blood Pressure 133/71 133/71 128/71 O2 Sat by Pulse 96 99 99 Oximetry 03/30/18 03/30/18 03/30/18 08:41 08:51 09:00 Temperature Pulse Rate 80 82 91 H Pulse Rate [ From Monitor] Respiratory 27 H 27 H 12 Rate Blood Pressure 128/71 128/71 132/78 O2 Sat by Pulse 98 96 98 Oximetry 03/30/18 03/30/18 03/30/18 09:11 09:21 09:30 Temperature Pulse Rate 88 91 H 91 H Pulse Rate [ From Monitor] Respiratory 14 15 21 Rate Blood Pressure 132/78 132/78 136/70 O2 Sat by Pulse 98 97 98 Oximetry 03/30/18 03/30/18 03/30/18 09:41 09:51 09:52 Temperature Pulse Rate 90 89 Pulse Rate [ From Monitor] Respiratory 16 19 Rate Blood Pressure 136/70 136/70 O2 Sat by Pulse 99 97 98 Oximetry 03/30/18 03/30/18 03/30/18 10:00 10:11 10:21 Temperature Pulse Rate 93 H 93 H 90 Pulse Rate [ From Monitor] Respiratory 20 20 16 Rate Blood Pressure 136/77 136/77 136/77 O2 Sat by Pulse 99 97 97 Oximetry 03/30/18 12:00 Temperature 98.4 F Pulse Rate Pulse Rate [ From Monitor] Respiratory Rate Blood Pressure O2 Sat by Pulse Oximetry Constitutional: no acute distress, alert Eyes: non-icteric Neck: other Effort: normal Ascultation: Bilateral: clear Percussion: Bilateral: not dull Cardiovascular: regular rate and rhythm Gastrointestinal: normoactive bowel sounds, soft, non-tender Extremities: no edema, pink and warm Neurologic: unable to assess CBC and BMP: 03/30/18 04:01 03/30/18 04:01 ABG, PT/INR, D-dimer: ABG POC ABG pH 7.436 (7.35-7.45) 03/29/18 04:05 POC ABG pCO2 36.8 (35-45) 03/29/18 04:05 POC ABG pO2 221 (80-105) H 03/29/18 04:05 POC ABG HCO3 24.7 03/29/18 04:05 POC ABG Total CO2 26 03/29/18 04:05 POC ABG O2 Sat 100 03/29/18 04:05 PT/INR, D-dimer PT 10.8 Sec. (12.2-14.9) L 03/29/18 03:47 INR 0.74 (0.87-1.13) L 03/29/18 03:47 Abnormal lab findings: Abnormal Labs 03/29/18 03/29/18 03/29/18 01:26 01:26 03:47 WBC PT 10.8 L INR 0.74 L APTT 21.6 L POC ABG pO2 BUN Glucose Calcium Troponin T Triglycerides Cholesterol LDL Cholesterol Direct HDL Cholesterol Salicylates < 0.3 L Acetaminophen < 5.0 L 03/29/18 03/29/18 03/29/18 04:05 13:09 18:15 WBC PT INR APTT POC ABG pO2 221 H BUN Glucose Calcium Troponin T 0.749 H* D 0.378 H* D Triglycerides 196 H Cholesterol 219 H LDL Cholesterol Direct 169 H HDL Cholesterol 36 L Salicylates Acetaminophen 03/30/18 03/30/18 04:01 04:01 WBC 17.7 H PT INR APTT POC ABG pO2 BUN 19 H Glucose 111 H Calcium 7.6 L Troponin T Triglycerides Cholesterol LDL Cholesterol Direct HDL Cholesterol Salicylates Acetaminophen
[2018-03-30] MEDS ORDERED: CHLORASEPTIC MM PRN (22:55)
[2018-03-30] MEDS ORDERED: PROVENTIL IH ONE (23:00)
[2018-03-31 05:43] LABS: Hematocrit 37.1 % (30.3-42.9); Hemoglobin 12.5 gm/dl (10.1-14.3); Mean Corpuscular HGB Conc 34 % (30-34); Mean Corpuscular Hemoglobin 30 pg (28-32); Mean Corpuscular Volume 89 fl (79-97); Platelet Count 141 K/mm3 (140-440); Red Blood Count 4.19 M/mm3 (3.65-5.03); Red Cell Distribution Width 13.9 % (13.2-15.2)
[2018-03-31 06:06] LABS: BUN/Creatinine Ratio 16; Blood Urea Nitrogen 13 mg/dL (7-17); Calcium 8.4 mg/dL (8.4-10.2); Hemolysis Index 3
--- NOTE | 2018-03-31 08:13 | Progress Note ---
Assessment and Plan Assessment and plan: Patient is a 62 yo woman who presented to [facility] via EMS for AMS. Patient was found at home unresponsive. Family stated it could be possible OD on Xanex or clonopin, but not sure, EMS gave 2mg narcan. Patient 96% on 3 liters O2, Upon arrival patient responsive to painful stimuli and mumbling unclear words per Triage note. This is patient first hospitalization in our EMR. Meet with son Mitch and "" Darrius at bedside: Patient has history of hypertension, migraines, GERD arthritis of the hands s/p bilateral carpal tunnel syndrome, ex smoker, street drug Xanax use. Daughter Danica also lives with patient and has drug addiction according to her brother Mitch and Darrius. According to [place] specialty manufacturing supervisor aware, Dr. Lindsey Garcia gave patient 60 tablets of Clonazepam on 01/29/18, 60 tablets for percocet on 01/29/18 and 60 tablets of Clonzepam again on 03/05/18 * CT head without contrast reported age related volume loss, no acute intracranial process, mild sinusitis (maxillary, ethmoid, sphenoid) * pCXR satisfactory intubation and placement of NG tube, no evidence of congestion or infiltrates * UDS positive for benzodiazepines,opiates, marijuana. -UnIntentional Xanax Drug Overdose (tried friend's Xanax): Counseling done, still waiting for mental health evaluation. -Acute respiratory failure s/p Intubation in ED and extubated 03/29/18: ulmonology following, closely monitor O2 saturation -Acute toxic encephalopathy with AMS due to Xanax per patient -Nausea/Vomiting: treat with antiemetics -Abnormal EKG, SR 89, V3-v5 ST Depression with elevated troponin: consulted Cardiology==>request stress test before discharge. -Polysubstance abuse suspected, uses street Xanax -DVT prophylaxis: scd and sq heparin full code Disposition: continue inpatient care, Stress test pending, if negative and psych clears then d/c home. History Interval history: Patient was seen and examined. Follow-up on current diagnosis respiratory failure due to drug overdose. Overnight uneventful. Patient denies any chest pain, shortness breath, nausea/vomiting or severe headaches. Imaging, nursing note, chart, labs and old chart reviewed. Discussed with patient. Extubated , doing well. Says she overdose unintentional on Xanax from a "friend" while still taking her prescribe Clonazepam. She denies SI. Hospitalist Physical - Physical exam Narrative exam: GEN: WDWN, NAD, Awake, Alert, Orientated x 3, extubated 03/29/18 HEENT: NCAT, EOMI, PERRL, OP Clear NECK: supple, no adenopathy, no thyromegaly, no JVD CVS/HEART: RRR, normal S1S2, pulses present bilaterally CHEST/LUNGS: CTA B, Symmetrical chest expansion, good air entry bilaterally GI/Abdomen: soft, NTND, good bowel sounds, no guarding or rebound /Bladder: no suprapubic tenderness, no CVA or paraspinal tenderness EXT/Skin: no c/c/e, no obvious rash MSK: FROM x 4 Neuro: CN 2-12 grossly intact, no new focal deficits Psych: calm - Constitutional Vitals: Temp Pulse Resp BP Pulse Ox 98.2 F 94 H 22 149/89 93 03/31/18 04:07 03/31/18 04:07 03/31/18 04:07 03/31/18 04:07 03/31/18 04:07 Results - Labs CBC & Chem 7: 03/31/18 04:48 03/31/18 04:48 Labs: Laboratory Last Values WBC 10.6 K/mm3 (4.5-11.0) 03/31/18 04:48 RBC 4.19 M/mm3 (3.65-5.03) 03/31/18 04:48 Hgb 12.5 gm/dl (10.1-14.3) 03/31/18 04:48 Hct 37.1 % (30.3-42.9) 03/31/18 04:48 MCV 89 fl (79-97) 03/31/18 04:48 MCH 30 pg (28-32) 03/31/18 04:48 MCHC 34 % (30-34) 03/31/18 04:48 RDW 13.9 % (13.2-15.2) 03/31/18 04:48 Plt Count 141 K/mm3 (140-440) 03/31/18 04:48 Lymph % (Auto) 22.4 % (13.4-35.0) 03/29/18 01:26 [place] % (Auto) 6.0 % (0.0-7.3) 03/29/18 01:26 Eos % (Auto) 2.3 % (0.0-4.3) 03/29/18 01:26 Baso % (Auto) 1.0 % (0.0-1.8) 03/29/18 01:26 Lymph # 1.9 K/mm3 (1.2-5.4) 03/29/18: [place] # 0.5 K/mm3 (0.0-0.8) 03/29/18 01:26 Eos # 0.2 K/mm3 (0.0-0.4) 03/29/18: Baso # 0.1 K/mm3 (0.0-0.1) 03/29/18 01: Seg Neutrophils % 68.3 % (40.0-70.0) 03/29/18 01: Seg Neutrophils # 5.7 K/mm3 (1.8-7.7) 03/29/18 01:26 PT 10.8 Sec. (12.2-14.9) L 03/29/18 03:47 INR 0.74 (0.87-1.13) L 03/29/18 03:47 APTT 21.6 Sec. (24.2-36.6) L 03/29/18 03:47 POC ABG pH 7.436 (7.35-7.45) 03/29/18 04:05 POC ABG pCO2 36.8 (35-45) 03/29/18 04:05 POC ABG pO2 221 (80-105) H 03/29/18 04:05 POC ABG HCO3 24.7 03/29/18 04:05 POC ABG Total CO2 26 03/29/18 04:05 POC ABG O2 Sat 100 03/29/18 04:05 POC ABG Base Excess 1 03/29/18 04:05 FiO2 80 % 03/29/18 04:05 Sodium 142 mmol/L (137-145) 03/31/18 04:48 Potassium 3.7 mmol/L (3.6-5.0) 03/31/18 04:48 Chloride 105.1 mmol/L (98-107) 03/31/18 04:48 Carbon Dioxide 23 mmol/L (22-30) 03/31/18 04:48 Anion Gap 18 mmol/L 03/31/18 04:48 BUN 13 mg/dL (7-17) 03/31/18 04:48 Creatinine 0.8 mg/dL (0.7-1.2) 03/31/18 04:48 Estimated GFR > 60 ml/min 03/31/18 04:48 BUN/Creatinine Ratio 16 % 03/31/18 04:48 Glucose 92 mg/dL (65-100) 03/31/18 04:48 POC Glucose 95 (70-105) 03/29/18 03:09 Calcium 8.4 mg/dL (8.4-10.2) 03/31/18 04:48 Ammonia 45.0 umol/L (25-60) 03/29/18 03:47 Total Creatine Kinase 72 units/L (30-135) 03/29/18 03:47 Troponin T 0.378 ng/mL (0.00-0.029) H* D 03/29/18 18:15 Triglycerides 196 mg/dL (2-149) H 03/29/18 13:09 Cholesterol 219 mg/dL (50-199) H 03/29/18 13:09 LDL Cholesterol Direct 169 mg/dL (50-130) H 03/29/18 13:09 HDL Cholesterol 36 mg/dL (40-59) L 03/29/18 13:09 Cholesterol/HDL Ratio 6.08 % 03/29/18 13:09 TSH 0.720 mlU/mL (0.270-4.200) 03/30/18 04:01 Urine Color Yellow (Yellow) 03/29/18 02:50 Urine Turbidity Clear (Clear) 03/29/18 02:50 Urine pH 6.0 (5.0-7.0) 03/29/18 02:50 Ur Specific [place] 1.009 (1.003-1.030) 03/29/18 02:50 Urine Protein <15 mg/dl mg/dL (Negative) 03/29/18 02:50 Urine Glucose (UA) Neg mg/dL (Negative) 03/29/18 02:50 Urine Ketones Neg mg/dL (Negative) 03/29/18 02:50 Urine Blood Neg (Negative) 03/29/18 02:50 Urine Nitrite Neg (Negative) 03/29/18 02:50 Urine Bilirubin Neg (Negative) 03/29/18 02:50 Urine Urobilinogen < 2.0 mg/dL (<2.0) 03/29/18 02:50 Ur Leukocyte Esterase Neg (Negative) 03/29/18 02:50 Urine WBC (Auto) 1.0 /HPF (0.0-6.0) 03/29/18 02:50 Urine RBC (Auto) < 1.0 /HPF (0.0-6.0) 03/29/18 02:50 Salicylates < 0.3 mg/dL (2.8-20.0) L 03/29/18 01:26 Urine Opiates Screen Presumptive positive 03/29/18 02:50 Urine Methadone Screen Presumptive negative 03/29/18 02:50 Acetaminophen < 5.0 ug/mL (10.0-30.0) L 03/29/18 01:26 Ur Barbiturates Screen Presumptive negative 03/29/18 02:50 Ur Phencyclidine Scrn Presumptive negative 03/29/18 02:50 Ur Amphetamines Screen Presumptive negative 03/29/18 02:50 U Benzodiazepines Scrn Presumptive positive 03/29/18 02:50 Urine Cocaine Screen Presumptive negative 03/29/18 02:50 U Marijuana (THC) Screen Presumptive positive 03/29/18 02:50 Drugs of Abuse Note Disclamer 03/29/18 02:50 Plasma/Serum Alcohol < 0.01 % (0-0.07) 03/29/18 01:26
[2018-03-31] MEDS ORDERED: LEXISCAN IV ONE ×2 (09:02→09:10)
[2018-03-31] MEDS: PROTONIX IV SCH ×2 (11:59→21:33)
[2018-03-31] MEDS: HEPARIN SUB-Q SCH ×3 (11:59→21:33)
[2018-03-31] MEDS ORDERED: PROVENTIL IH PRN (13:09)
--- NOTE | 2018-03-31 14:20 | Progress Note ---
Assessment and Plan Imp: 1. Drug overdose 2. Polysubstance abuse -> benzos, THC 3. Acute respiratory failure, hypoxia 2/2 above 4. Mild stridor w/ SOB presumably due to the same Rec: 1. May have some upper airway (laryngeal or tracheal) inflammation related to the ET tube as she does have very mild stridor on exam; she is on RA and in no acute distress; would start Duonebs scheduled and Prednisone 40mg daily x 5 days , monitoring closely 2. Psych eval. 3. F/u Echo/cardiac work-up Plan of care reviewed w/ patient, she understands/agrees Subjective Date of service: 03/31/18 Principal diagnosis: Xanax overdose Interval history: No events. C/o SOB at rest. On RA. No chest pain. Active Medications Albuterol/Ipratropium (Duoneb *Not For Prn Use*) 1 ampul IH TIDRT [facility] Heparin Sodium (Porcine) (Heparin) 5,000 unit SUB-Q Q12HR [facility] Last Admin: 03/31/18 12:49 Dose: Not Given Ondansetron HCl (Zofran) 4 mg IV Q4H PRN PRN Reason: Nausea And Vomiting Pantoprazole Sodium (Protonix) 40 mg IV BID [facility] Last Admin: 03/31/18 11:59 Dose: 40 mg Phenol (Chloraseptic) 1 spray MM PRN PRN PRN Reason: Sore Throat Last Admin: 03/31/18 05:10 Dose: 1 spray Prednisone (Deltasone) 40 mg PO QDAY [facility] Objective Vital Signs - 12hr 03/31/18 03/31/18 03/31/18 04:07 08:40 10:00 Temperature 98.2 F 97.4 F L Pulse Rate 94 H 87 Respiratory 22 16 Rate Blood Pressure 149/89 148/84 O2 Sat by Pulse 93 96 98 Oximetry Constitutional: no acute distress, alert Eyes: non-icteric ENT: oropharynx moist Neck: other (very mild stridor over trachea, inspiratory and expiratory) Effort: normal Ascultation: Bilateral: clear Percussion: Bilateral: not dull Cardiovascular: regular rate and rhythm Gastrointestinal: normoactive bowel sounds, soft, non-tender, non-distended Extremities: no cyanosis, no edema, pink and warm Neurologic: normal mental status, non-focal exam Psychiatric: mood appropriate, affect normal CBC and BMP: 03/31/18 04:48 03/31/18 04:48 ABG, PT/INR, D-dimer: ABG POC ABG pH 7.436 (7.35-7.45) 03/29/18 04:05 POC ABG pCO2 36.8 (35-45) 03/29/18 04:05 POC ABG pO2 221 (80-105) H 03/29/18 04:05 POC ABG HCO3 24.7 03/29/18 04:05 POC ABG Total CO2 26 03/29/18 04:05 POC ABG O2 Sat 100 03/29/18 04:05 PT/INR, D-dimer PT 10.8 Sec. (12.2-14.9) L 03/29/18 03:47 INR 0.74 (0.87-1.13) L 03/29/18 03:47 Abnormal lab findings: Abnormal Labs 03/29/18 03/29/18 03/29/18 01:26 01:26 03:47 WBC PT 10.8 L INR 0.74 L APTT 21.6 L POC ABG pO2 BUN Glucose Calcium Troponin T Triglycerides Cholesterol LDL Cholesterol Direct HDL Cholesterol Salicylates < 0.3 L Acetaminophen < 5.0 L 03/29/18 03/29/18 03/29/18 04:05 13:09 18:15 WBC PT INR APTT POC ABG pO2 221 H BUN Glucose Calcium Troponin T 0.749 H* D 0.378 H* D Triglycerides 196 H Cholesterol 219 H LDL Cholesterol Direct 169 H HDL Cholesterol 36 L Salicylates Acetaminophen 03/30/18 03/30/18 04:01 04:01 WBC 17.7 H PT INR APTT POC ABG pO2 BUN 19 H Glucose 111 H Calcium 7.6 L Troponin T Triglycerides Cholesterol LDL Cholesterol Direct HDL Cholesterol Salicylates Acetaminophen Chest x-ray: report reviewed, image reviewed (clear lungs)
[2018-03-31] MEDS ORDERED: PROVENTIL IH ONE (14:21)
--- NOTE | 2018-03-31 14:34 | Treadmill Report ---
THALLIUM STRESS TEST LEFT VENTRICLE: Left ventricular chamber size is within normal limits. Perfusion study demonstrates homogeneous uptake of the tracer in all segments, no significant perfusion defects identified. Gated analysis demonstrates normal left ventricular systolic function, ejection fraction 65%. CONCLUSION: Normal myocardial perfusion study. JOB# [id number] CA/NTS
[2018-03-31] MEDS: DELTASONE PO SCH (16:58)
--- NOTE | 2018-03-31 19:30 | Progress Note ---
Assessment and Plan - Patient Problems (1) Atypical chest pain Current Visit: Yes Status: Acute Plan to address problem: Persantine thallium stress test today shows normal myocardial perfusion scan, normal left ventricular systolic function. Subjective Date of service: 03/31/18 Principal diagnosis: Xanax overdose Interval history: 62-year-old woman who admits to severe social and family stress, ingested an overdose of Xanax, in order to "help cope with her stress". She denies suicide ideation or a suicide attempt. She also feels better today, was ordered for a Persantine thallium stress test for atypical chest pain or shortness of breath. Persantine thallium stress test today shows normal myocardial perfusion scan, normal left ventricular systolic function. Objective Vital Signs Temp Pulse Pulse Pulse Resp Resp BP 03/31/18 15:39 98.2 F 89 18 130/66 03/31/18 14:30 105 H 20 03/31/18 12:38 98.6 F 94 H 18 152/84 03/31/18 10:38 98 H 184/92 03/31/18 10:37 104 H 188/97 03/31/18 10:36 110 H 190/105 03/31/18 10:35 111 H 190/105 03/31/18 10:34 113 H 184/97 03/31/18 10:33 108 H 140/86 03/31/18 10:00 03/31/18 09:44 86 140/86 03/31/18 08:40 97.4 F L 87 16 148/84 03/31/18 04:07 98.2 F 94 H 22 149/89 03/31/18 00:00 98.6 F 96 H 20 141/73 03/30/18 23:15 84 18 03/30/18 23:05 84 18 03/30/18 22:00 105 H 18 03/30/18 20:49 98.6 F 86 22 135/82 03/30/18 20:02 107 H Pulse Ox 03/31/18 15:39 98 03/31/18 14:30 03/31/18 12:38 97 03/31/18 10:38 03/31/18 10:37 03/31/18 10:36 03/31/18 10:35 03/31/18 10:34 03/31/18 10:33 03/31/18 10:00 98 03/31/18 09:44 03/31/18 08:40 96 03/31/18 04:07 93 03/31/18 00:00 94 03/30/18 23:15 03/30/18 23:05 03/30/18 22:00 98 03/30/18 20:49 95 03/30/18 20:02 - Physical Examination General: Appears Well, No Apparent Distress HEENT: Positive: PERRL Neck: Positive: neck supple Cardiac: Positive: Reg Rate and Rhythm Lungs: Positive: Decreased Breath Sounds Neuro: Positive: Grossly Intact Abdomen: Positive: Soft Skin: Positive: Clear Extremities: Absent: edema - Labs and Meds CBC 03/31/18 Range/Units 04:48 WBC 10.6 (4.5-11.0) K/mm3 RBC 4.19 (3.65-5.03) M/mm3 Hgb 12.5 (10.1-14.3) gm/dl Hct 37.1 (30.3-42.9) % Plt Count 141 (140-440) K/mm3 Comprehensive Metabolic Panel 03/31/18 Range/Units 04:48 Sodium 142 (137-145) mmol/L Potassium 3.7 (3.6-5.0) mmol/L Chloride 105.1 (98-107) mmol/L Carbon Dioxide 23 (22-30) mmol/L BUN 13 (7-17) mg/dL Creatinine 0.8 (0.7-1.2) mg/dL Glucose 92 (65-100) mg/dL Calcium 8.4 (8.4-10.2) mg/dL - EKG Sinus rhythms and dysrhythmias: sinus rhythm
[2018-03-31] MEDS: DUONEB *Not for PRN Use IH SCH (19:34)
[2018-04-01] MEDS: TYLENOL PO PRN ×2 (05:03→21:10)
[2018-04-01 06:01] LABS: Hematocrit 38.9 % (30.3-42.9); Hemoglobin 13.2 gm/dl (10.1-14.3); Mean Corpuscular HGB Conc 34 % (30-34); Mean Corpuscular Hemoglobin 30 pg (28-32); Mean Corpuscular Volume 88 fl (79-97); Platelet Count 171 K/mm3 (140-440); Red Blood Count 4.42 M/mm3 (3.65-5.03); Red Cell Distribution Width 13.8 % (13.2-15.2)
[2018-04-01 06:26] LABS: BUN/Creatinine Ratio 13; Blood Urea Nitrogen 10 mg/dL (7-17); Calcium 8.9 mg/dL (8.4-10.2); Hemolysis Index 6
[2018-04-01] MEDS: DUONEB *Not for PRN Use IH SCH ×3 (09:00→19:13)
--- NOTE | 2018-04-01 09:43 | Progress Note ---
Assessment and Plan - Patient Problems (1) Atypical chest pain Current Visit: Yes Status: Acute Plan to address problem: Persantine thallium stress test reports normal myocardial perfusion scan, normal left ventricular systolic function. Normal left ventricular systolic function, ejection fraction 60-65% by echocardiogram. No further cardiac workup indicated. We will follow intermittently. Subjective Date of service: 04/01/18 Principal diagnosis: Xanax overdose Interval history: Patient reports she is feeling better. She denies chest pain and shortness of breath. No events on telemetry monitoring. Objective Vital Signs Temp Pulse Pulse Resp Resp BP BP 04/01/18 09:10 98 H 18 04/01/18 09:02 04/01/18 09:00 87 18 04/01/18 08:34 96 H 18 157/87 04/01/18 08:00 98.4 F 89 18 157/87 04/01/18 05:03 16 04/01/18 04:42 98.3 F 82 20 147/81 04/01/18 04:12 64 04/01/18 01:00 98.2 F 98 H 18 170/94 03/31/18 23:47 96 H 170/94 03/31/18 20:24 97.9 F 95 H 20 146/83 03/31/18 19:50 94 H 20 03/31/18 19:42 101 H 146/83 03/31/18 19:37 03/31/18 19:35 92 H 20 03/31/18 15:39 98.2 F 92 H 18 130/66 03/31/18 14:30 105 H 20 03/31/18 12:38 98.6 F 94 H 18 152/84 03/31/18 10:38 98 H 184/92 03/31/18 10:37 104 H 188/97 03/31/18 10:36 110 H 190/105 03/31/18 10:35 111 H 190/105 03/31/18 10:34 113 H 184/97 03/31/18 10:33 108 H 140/86 03/31/18 10:00 98 H 03/31/18 09:44 86 140/86 Pulse Ox 04/01/18 09:10 04/01/18 09:02 98 04/01/18 09:00 04/01/18 08:34 96 08/07/18 08:00 97 04/01/18 05:03 04/01/18 04:42 97 04/01/18 04:12 04/01/18 01:00 98 03/31/18 23:47 97 03/31/18 20:24 95 03/31/18 19:50 03/31/18 19:42 94 03/31/18 19:37 98 03/31/18 19:35 03/31/18 15:39 97 03/31/18 14:30 03/31/18 12:38 96 03/31/18 10:38 03/31/18 10:37 03/31/18 10:36 03/31/18 10:35 03/31/18 10:34 03/31/18 10:33 03/31/18 10:00 98 03/31/18 09:44 - Physical Examination General: Appears Well, No Apparent Distress HEENT: Positive: PERRL Cardiac: Positive: Reg Rate and Rhythm Lungs: Positive: Decreased Breath Sounds Neuro: Positive: Grossly Intact Extremities: Absent: edema - Labs and Meds CBC 04/01/18 Range/Units 05:22 WBC 10.0 (4.5-11.0) K/mm3 RBC 4.42 (3.65-5.03) M/mm3 Hgb 13.2 (10.1-14.3) gm/dl Hct 38.9 (30.3-42.9) % Plt Count 171 (140-440) K/mm3 Comprehensive Metabolic Panel 04/01/18 Range/Units 05:22 Sodium 141 (137-145) mmol/L Potassium 3.7 (3.6-5.0) mmol/L Chloride 102.0 (98-107) mmol/L Carbon Dioxide 23 (22-30) mmol/L BUN 10 (7-17) mg/dL Creatinine 0.8 (0.7-1.2) mg/dL Glucose 108 H (65-100) mg/dL Calcium 8.9 (8.4-10.2) mg/dL - EKG Sinus rhythms and dysrhythmias: sinus rhythm
[2018-04-01] MEDS: PROTONIX IV SCH (10:53)
[2018-04-01] MEDS: HEPARIN SUB-Q SCH (10:53)
[2018-04-01] MEDS: DELTASONE PO SCH (10:53)
--- NOTE | 2018-04-01 13:53 | Progress Note ---
Assessment and Plan Imp: 1. Drug overdose 2. Polysubstance abuse -> benzos, THC 3. Acute respiratory failure, hypoxia 2/2 above 4. Mild stridor w/ SOB presumably due to the same Rec: 1. Had mild stridor on 03/31/18, now resolved; treat with prednisone 40mg x 5 days and can send out on Albuterol MDI prn; if persistent SOB after d/c should f /u in our office 1-2 weeks; can go home [id number] 2. Still awaiting psych eval. Plan of care reviewed w/ patient, she understands/agrees Subjective Date of service: 04/01/18 Principal diagnosis: Xanax overdose Interval history: No events. SOB resolved. On RA. No chest pain. Active Medications Acetaminophen (Tylenol) 650 mg PO Q6H PRN PRN Reason: Pain, Mild (1-3) Last Admin: 04/01/18 05:03 Dose: 650 mg Albuterol/Ipratropium (Duoneb *Not For Prn Use*) 1 ampul IH TIDRT [facility] Last Admin: 04/01/18 09:00 Dose: 1 ampul Heparin Sodium (Porcine) (Heparin) 5,000 unit SUB-Q Q12HR [facility] Last Admin: 04/01/18 10:53 Dose: 5,000 unit Ondansetron HCl (Zofran) 4 mg IV Q4H PRN PRN Reason: Nausea And Vomiting Pantoprazole Sodium (Protonix) 40 mg PO DAILY [facility] Phenol (Chloraseptic) 1 spray MM PRN PRN PRN Reason: Sore Throat Last Admin: 03/31/18 05:10 Dose: 1 spray Prednisone (Deltasone) 40 mg PO QDAY [facility] Last Admin: 04/01/18 10:53 Dose: 40 mg Objective Vital Signs - 12hr 04/01/18 04/01/18 04/01/18 04:12 04:42 05:03 Temperature 98.3 F Pulse Rate 64 82 Pulse Rate [ Anterior Bilateral Throughout] Respiratory 20 16 Rate Respiratory Rate [Anterior Bilateral Throughout] Blood Pressure 147/81 Blood Pressure [Right] O2 Sat by Pulse 97 Oximetry 04/01/18 04/01/18 04/01/18 08:00 08:34 09:00 Temperature 98.4 F Pulse Rate 89 96 H Pulse Rate [ 87 Anterior Bilateral Throughout] Respiratory 18 18 Rate Respiratory 18 Rate [Anterior Bilateral Throughout] Blood Pressure 157/87 Blood Pressure 157/87 [Right] O2 Sat by Pulse 97 96 Oximetry 04/01/18 04/01/18 04/01/18 09:02 09:10 12:00 Temperature 98.3 F Pulse Rate Pulse Rate [ 98 H Anterior Bilateral Throughout] Respiratory Rate Respiratory 18 Rate [Anterior Bilateral Throughout] Blood Pressure Blood Pressure [Right] O2 Sat by Pulse 98 Oximetry 04/01/18 12:51 Temperature Pulse Rate 98 H Pulse Rate [ Anterior Bilateral Throughout] Respiratory 20 Rate Respiratory Rate [Anterior Bilateral Throughout] Blood Pressure 161/92 Blood Pressure [Right] O2 Sat by Pulse 98 Oximetry Constitutional: no acute distress, alert Eyes: non-icteric ENT: oropharynx moist Neck: supple (no stridor) Effort: normal Ascultation: Bilateral: clear Cardiovascular: regular rate and rhythm Gastrointestinal: normoactive bowel sounds, soft, non-tender, non-distended Extremities: no cyanosis, no edema, pink and warm Neurologic: normal mental status, non-focal exam Psychiatric: mood appropriate, affect normal CBC and BMP: 04/01/18 05:22 04/01/18 05:22 ABG, PT/INR, D-dimer: ABG POC ABG pH 7.436 (7.35-7.45) 03/29/18 04:05 POC ABG pCO2 36.8 (35-45) 03/29/18 04:05 POC ABG pO2 221 (80-105) H 03/29/18 04:05 POC ABG HCO3 24.7 03/29/18 04:05 POC ABG Total CO2 26 03/29/18 04:05 POC ABG O2 Sat 100 03/29/18 04:05 PT/INR, D-dimer PT 10.8 Sec. (12.2-14.9) L 03/29/18 03:47 INR 0.74 (0.87-1.13) L 03/29/18 03:47 Abnormal lab findings: Abnormal Labs 03/29/18 03/29/18 03/29/18 01:26 01:26 03:47 WBC PT 10.8 L INR 0.74 L APTT 21.6 L POC ABG pO2 BUN Glucose Calcium Troponin T Triglycerides Cholesterol LDL Cholesterol Direct HDL Cholesterol Salicylates < 0.3 L Acetaminophen < 5.0 L 03/29/18 03/29/18 03/29/18 04:05 13:09 18:15 WBC PT INR APTT POC ABG pO2 221 H BUN Glucose Calcium Troponin T 0.749 H* D 0.378 H* D Triglycerides 196 H Cholesterol 219 H LDL Cholesterol Direct 169 H HDL Cholesterol 36 L Salicylates Acetaminophen 03/30/18 03/30/18 04/01/18 04:01 04:01 05:22 WBC 17.7 H PT INR APTT POC ABG pO2 BUN 19 H Glucose 111 H 108 H Calcium 7.6 L Troponin T Triglycerides Cholesterol LDL Cholesterol Direct HDL Cholesterol Salicylates Acetaminophen Chest x-ray: report reviewed, image reviewed
--- NOTE | 2018-04-01 15:57 | Consultation ---
History of Present Illness - Reason for Consult Consult date: 04/01/18 Reason for consult: Mental Health Evaluation Requesting physician: ELIZ BUCIO - Chief Complaint Chief complaint: I definitely didn't try to kill myself" - History of Present Psychiatric Illness 62 white female presenting to the ER for overdose. Psychiatry was consulted to see patient for possible overdose. Today the patient is calm and and cooperative during the assessment. She stated that she was overwhelmed with an issue with her daughter who just moved back into her home. She stated that her friend gave her Xanax pills to take to help her relax. She stated that she did that and took one oxycodone pill. She is adamant that she wasn't trying to kill herself. She stated that she should have made a better decision than take multiple pills. Per collateral information from her Darrius Orosco, who was at the bedside, he stated that he does not believe his tried to kill herself. He stated that she has never attempted suicide or discussed having SI' s in the past. He stated that he feel safe for his to return home once discharged. The patent acknowledged a hx of depression and take Zoloft 100 mg daily. She stated that her PCP manage her depression, but she prefer to see a psychiatrist at [facility] for outpatient psy services. She denies SI/HI's and AVH's. She denies being depressed. She stated smoking marijuana sometimes. She denies alcohol consumption (etoh). Medications and Allergies Allergies Allergy/AdvReac Type Severity Reaction Status Date / Time No Known Allergies Allergy Verified 03/29/18 03:18 Home Medications Medication Instructions Recorded Confirmed Last Taken Type Unobtainable 03/29/18 03/29/18 Unknown History Active Meds: Active Medications Acetaminophen (Tylenol) 650 mg PO Q6H PRN PRN Reason: Pain, Mild (1-3) Last Admin: 04/01/18 05:03 Dose: 650 mg Albuterol/Ipratropium (Duoneb *Not For Prn Use*) 1 ampul IH TIDRT [facility] Last Admin: 04/01/18 14:16 Dose: 1 ampul Heparin Sodium (Porcine) (Heparin) 5,000 unit SUB-Q Q12HR [facility] Last Admin: 04/01/18 10:53 Dose: 5,000 unit Ondansetron HCl (Zofran) 4 mg IV Q4H PRN PRN Reason: Nausea And Vomiting Pantoprazole Sodium (Protonix) 40 mg PO DAILY [facility] Phenol (Chloraseptic) 1 spray MM PRN PRN PRN Reason: Sore Throat Last Admin: 03/31/18 05:10 Dose: 1 spray Prednisone (Deltasone) 40 mg PO QDAY [facility] Last Admin: 04/01/18 10:53 Dose: 40 mg Past psychiatric history - Past Medical History Past Medical History: No medical history Past Surgical History: No surgical history - past Psychiatric treatment and history Psych: Depression psychiatric treatment history: Hx of depression. Denies a fam psy hx. - Social History Social history: lives with family Mental Status Exam - Vital signs Last Vital Signs Temp 98.3 F 04/01/18 12:00 Pulse 104 H 04/01/18 14:26 Resp 18 04/01/18 14:26 BP 161/92 04/01/18 12:51 Pulse Ox 98 04/01/18 12:51 - Exam Narrative exam: MSE: Appearance: calm, cooperative Behavior: regular eye contact Speech: regular rate and tone Mood: "okay" Affect: congruent to mood Thought Process: linear Thought Content: denies SI/HI's and AVH's Motor Activity: sitting up in bed Cognition: A/O x 3 Insight: appropriate Judgment: appropriate Results Result Diagrams: 04/01/18 05:22 04/01/18 05:22 Abnormal lab results 04/01/18 Range/Units 05:22 Glucose 108 H (65-100) mg/dL All other labs normal. Assessment and Plan Assessment and plan: Impression: Hx of Depression. Cannabis Use DO. unintentional overdose. Today the patient is calm and and cooperative during the assessment. The patient is no threat to self. I. This screening and assessment is based on information collected from the following sources: II. SUICIDE RISK SCREENING (within last 30 days): A.) Suicidal thoughts/behaviors: No SUICIDE RISK ASSESSMENT III. FACTORS THAT INCREASE RISK: A.) Demographic and Substance Use Factors: Yes (Marijuana) B.) Current/Recent Factors (within past 3 months): Psychosocial/Environmental Factors: Family Dynamics issues Physical Illness: None Cognitive/Psychological Factors: None C.) Historical Factors: None D.) Diagnostic/Symptom/Treatment Factors: None E.) Acute Risk Factor Severity (DESC; MILD/MOD/SEVERE): Mild Other factors for this individual that increase risk: None IV. FACTORS THAT DECREASE RISK: Resilience/Protective Factors: Patient want to have a better relationship with her daughter Other factors for this individual that decrease risk: Patient denies a desire to harm self V. Clinician's Formulation of Risk and Determination of level of Care: This is a 62-year-old white female who ingested multiple Xanax pills along with taking 1 oxycodone pill. She stated that she was not trying to kill herself. She acknowledged that she should have not ingested multiple pills. She stated that she will follow-up with outpatient psy services once discharged. Since being hospitalized the patient has consistently denied the desire to harm herself. Additionally, she has become insightful about how to better address her current issues. The patient is not impaired by substance. She is able to take care of her ADLs and is not at imminent risk of harm to self or others. Estimation of Imminent Risk: Low due to the above explanation. Determination of Level of Care based on Suicide Risk: Outpatient follow-up. Narrative description of clinical reasoning. Given the fact that the patient is willing to follow up with outpatient psy services at [facility] it is reasonable to expect that the patient will seek services. Furthermore, the patient appears future oriented and denies that her intention was to end her life. She is regretful of the decision and has several things in his life to look forward to. At this current time, she is not impulsive and does not have any risk factors to increase the likelihood of her impulsive behavior. . Plan and Interventions based on Suicide Risk: This patient will likely be stepped down to an outpatient mental health center in the community upon discharge and follow-up within 7 days of her discharge from the hospital. VII. Discharge/After Hours Support Plan: Patient can return back to the ER, call 911 or crisis line if symptoms of depression, anxiety, and or suicidality. Recommendation/Plan: Discussed with patient the risk of taking another person's medications. She verbalized understanding. The patient's PCP prescribes her Zoloft. Also, the patient can follow up with [facility] for outpatient psy services. The patient do not need a prescription for Zoloft, she has medication at home.
--- NOTE | 2018-04-01 16:42 | Cat Scan Report ---
FINAL REPORT EXAM: CT ANGIO CHEST HISTORY: chest pain TECHNIQUE: Following administration of IV contrast axial helical imaging was performed through the chest with sagittal and coronal reformatted images and maximum intensity projection images obtained. Comparison: Chest x-rays dated March 30, 2018 and March 29, 2018 FINDINGS: There are patchy areas of pulmonary consolidation in the right lung apex this is suggestive of pulmonary infiltrates. There is a linear area of nodular consolidation in the left upper lobe. Atelectasis versus nodular infiltrate. This was present on the chest x-ray of March 30, 2018 but not present on the chest x-ray of March 29, 2018 The trachea and bronchi are patent. There is no evidence of pneumothorax or pleural fluid collection. Heart appears to be enlarged. There is mild pericardial thickening versus a small pericardial fluid collection. The thoracic aorta is normal caliber. There are mildly prominent mediastinal and bilateral axillary lymph nodes. These are nonspecific in appearance but are most likely inflammatory in nature. There are small calcified lymph nodes in the mediastinum and right hilum most consistent with chronic granulomatous change. Opacification of the pulmonary arteries is not optimal for a pulmonary arteriogram quality study. However, there appears to be a filling defect in the right upper lobe pulmonary artery (images 74 through 77 coronal reformatted images). This is also demonstrated on the maximum intensity projection images an images 81 through 90. The visualized portion of the upper abdomen is notable for evidence of previous cholecystectomy and calcified granulomas within the spleen. The bony structures are notable for left-sided rib deformities consistent with sequela of previous fractures. IMPRESSION: 1. Appearance of a filling defect in the right upper lobe pulmonary artery. Probable pulmonary artery embolus. 2. Patchy areas of pulmonary consolidation in the right lung apex. The appearance is suggestive of pulmonary infiltrates. However, pulmonary infarcts also need to be considered. Follow-up to resolution is recommended. 3. Linear area of nodular consolidation left upper lobe. Atelectasis versus infiltrate. 4. Small pericardial effusion versus mild pericardial thickening. Cardiomegaly. 5. Mildly prominent mediastinal lymph nodes that are nonspecific in appearance but are most likely inflammatory in nature. 6. Left-sided rib deformities consistent with sequela of previous fractures. 7. Status post cholecystectomy. The the t
--- NOTE | 2018-04-01 18:09 | Progress Note ---
Assessment and Plan Assessment and plan: Patient is a 62 yo woman who presented to [facility] via EMS for AMS. Patient was found at home unresponsive. Family stated it could be possible OD on Xanex or clonopin, but not sure, EMS gave 2mg narcan. Patient 96% on 3 liters O2, Upon arrival patient responsive to painful stimuli and mumbling unclear words per Triage note. This is patient first hospitalization in our EMR. Meet with son Mitch and "" Darrius at bedside: Patient has history of hypertension, migraines, GERD arthritis of the hands s/p bilateral carpal tunnel syndrome, ex smoker, street drug Xanax use. Daughter Danica also lives with patient and has drug addiction according to her brother Mitch and Darrius. According to [place] digital advertising analyst aware, Dr. Lindsey Garcia gave patient 60 tablets of Clonazepam on 01/29/18, 60 tablets for percocet on 01/29/18 and 60 tablets of Clonzepam again on 03/05/18 * CT head without contrast reported age related volume loss, no acute intracranial process, mild sinusitis (maxillary, ethmoid, sphenoid) * pCXR satisfactory intubation and placement of NG tube, no evidence of congestion or infiltrates * UDS positive for benzodiazepines,opiates, marijuana. -UnIntentional Xanax Drug Overdose (tried friend's Xanax): Counseling done, still waiting for mental health evaluation. -Elevated troponin, due to PE -Acute PE; started on eliquis, order dopplers on LE -Acute respiratory failure s/p Intubation in ED and extubated 03/29/18: ulmonology following, closely monitor O2 saturation -Acute toxic encephalopathy with AMS due to Xanax per patient -Nausea/Vomiting: treat with antiemetics -Abnormal EKG, SR 89, V3-v5 ST Depression with elevated troponin: consulted Cardiology==>request stress test before discharge. -Polysubstance abuse suspected, uses street Xanax -DVT prophylaxis: scd and sq heparin full code Disposition: continue inpatient care, Stress test pending, if negative and psych clears then d/c home. Hospitalist Physical - Constitutional Vitals: Temp Pulse Resp BP Pulse Ox 98.3 F 104 H 18 161/92 98 04/01/18 12:00 04/01/18 14:26 04/01/18 14:26 04/01/18 12:51 04/01/18 12:51 Results - Labs CBC & Chem 7: 04/01/18 05:22 04/01/18 05:22 Labs: Laboratory Last Values WBC 10.0 K/mm3 (4.5-11.0) 04/01/18 05:22 RBC 4.42 M/mm3 (3.65-5.03) 04/01/18 05:22 Hgb 13.2 gm/dl (10.1-14.3) 04/01/18 05:22 Hct 38.9 % (30.3-42.9) 04/01/18 05:22 MCV 88 fl (79-97) 04/01/18 05:22 MCH 30 pg (28-32) 04/01/18 05:22 MCHC 34 % (30-34) 04/01/18 05:22 RDW 13.8 % (13.2-15.2) 04/01/18 05:22 Plt Count 171 K/mm3 (140-440) 04/01/18 05:22 Lymph % (Auto) 22.4 % (13.4-35.0) 03/29/18 01:26 [place] % (Auto) 6.0 % (0.0-7.3) 03/29/18 01:26 Eos % (Auto) 2.3 % (0.0-4.3) 03/29/18 01:26 Baso % (Auto) 1.0 % (0.0-1.8) 03/29/18 01:26 Lymph # 1.9 K/mm3 (1.2-5.4) 03/29/18 01:26 [place] # 0.5 K/mm3 (0.0-0.8) 03/29/18 01:26 Eos # 0.2 K/mm3 (0.0-0.4) 03/29/18 01:26 Baso # 0.1 K/mm3 (0.0-0.1) 03/29/18 01:26 Seg Neutrophils % 68.3 % (40.0-70.0) 03/29/18 01:26 Seg Neutrophils # 5.7 K/mm3 (1.8-7.7) 03/29/18 01:26 PT 10.8 Sec. (12.2-14.9) L 03/29/18 03:47 INR 0.74 (0.87-1.13) L 03/29/18 03:47 APTT 21.6 Sec. (24.2-36.6) L 03/29/18 03:47 POC ABG pH 7.436 (7.35-7.45) 03/29/18 04:05 POC ABG pCO2 36.8 (35-45) 03/29/18 04:05 POC ABG pO2 221 (80-105) H 03/29/18 04:05 POC ABG HCO3 24.7 03/29/18 04:05 POC ABG Total CO2 26 03/29/18 04:05 POC ABG O2 Sat 100 03/29/18 04:05 POC ABG Base Excess 1 03/29/18 04:05 FiO2 80 % 03/29/18 04:05 Sodium 141 mmol/L (137-145) 04/01/18 05:22 Potassium 3.7 mmol/L (3.6-5.0) 04/01/18 05:22 Chloride 102.0 mmol/L (98-107) 04/01/18 05:22 Carbon Dioxide 23 mmol/L (22-30) 04/01/18 05:22 Anion Gap 20 mmol/L 04/01/18 05:22 BUN 10 mg/dL (7-17) 04/01/18 05:22 Creatinine 0.8 mg/dL (0.7-1.2) 04/01/18 05:22 Estimated GFR > 60 ml/min 04/01/18 05:22 BUN/Creatinine Ratio 13 % 04/01/18 05:22 Glucose 108 mg/dL (65-100) H 04/01/18 05:22 POC Glucose 95 (70-105) 03/29/18 03:09 Calcium 8.9 mg/dL (8.4-10.2) 04/01/18 05:22 Ammonia 45.0 umol/L (25-60) 03/29/18 03:47 Total Creatine Kinase 72 units/L (30-135) 03/29/18 03:47 Troponin T 0.378 ng/mL (0.00-0.029) H* D 03/29/18 18:15 Triglycerides 196 mg/dL (2-149) H 03/29/18 13:09 Cholesterol 219 mg/dL (50-199) H 03/29/18 13:09 LDL Cholesterol Direct 169 mg/dL (50-130) H 03/29/18 13:09 HDL Cholesterol 36 mg/dL (40-59) L 03/29/18 13:09 Cholesterol/HDL Ratio 6.08 % 03/29/18 13:09 TSH 0.720 mlU/mL (0.270-4.200) 03/30/18 04:01 Urine Color Yellow (Yellow) 03/29/18 02:50 Urine Turbidity Clear (Clear) 03/29/18 02:50 Urine pH 6.0 (5.0-7.0) 03/29/18 02:50 Ur Specific [place] 1.009 (1.003-1.030) 03/29/18 02:50 Urine Protein <15 mg/dl mg/dL (Negative) 03/29/18 02:50 Urine Glucose (UA) Neg mg/dL (Negative) 03/29/18 02:50 Urine Ketones Neg mg/dL (Negative) 03/29/18 02:50 Urine Blood Neg (Negative) 03/29/18 02:50 Urine Nitrite Neg (Negative) 03/29/18 02:50 Urine Bilirubin Neg (Negative) 03/29/18 02:50 Urine Urobilinogen < 2.0 mg/dL (<2.0) 03/29/18 02:50 Ur Leukocyte Esterase Neg (Negative) 03/29/18 02:50 Urine WBC (Auto) 1.0 /HPF (0.0-6.0) 03/29/18 02:50 Urine RBC (Auto) < 1.0 /HPF (0.0-6.0) 03/29/18 02:50 Salicylates < 0.3 mg/dL (2.8-20.0) L 03/29/18 01:26 Urine Opiates Screen Presumptive positive 03/29/18 02:50 Urine Methadone Screen Presumptive negative 03/29/18 02:50 Acetaminophen < 5.0 ug/mL (10.0-30.0) L 03/29/18 01:26 Ur Barbiturates Screen Presumptive negative 03/29/18 02:50 Ur Phencyclidine Scrn Presumptive negative 03/29/18 02:50 Ur Amphetamines Screen Presumptive negative 03/29/18 02:50 U Benzodiazepines Scrn Presumptive positive 03/29/18 02:50 Urine Cocaine Screen Presumptive negative 03/29/18 02:50 U Marijuana (THC) Screen Presumptive positive 03/29/18 02:50 Drugs of Abuse Note Disclamer 03/29/18 02:50 Plasma/Serum Alcohol < 0.01 % (0-0.07) 03/29/18 01:26
[2018-04-01] MEDS: ELIQUIS PO SCH (21:10)
[2018-04-02] MEDS: DUONEB *Not for PRN Use IH SCH ×2 (08:53→14:52)
[2018-04-02] MEDS: ELIQUIS PO SCH (09:05)
[2018-04-02] MEDS: DELTASONE PO SCH (09:09)
[2018-04-02] MEDS ORDERED: PROTONIX PO SCH (10:00)
[2018-04-02 12:58] VITALS: BP 191/98
--- NOTE | 2018-04-02 15:05 | Progress Note ---
Assessment and Plan Imp: 1. Drug overdose 2. Polysubstance abuse -> benzos, THC 3. Acute respiratory failure, hypoxia 2/2 above 4. Mild stridor w/ SOB presumably due to the same 5. ? Acute PE (suboptimal CT chest) Rec: 1. Had mild stridor on 03/31/18, now resolved; treat with prednisone 40mg x 5 days and can send out on Albuterol MDI prn; if persistent SOB after d/c should f /u in our office 1-2 weeks; can go home [id number] 2. Can treat with Eliquis x 3-6 months; LE dopplers negative; f/u with us per above Plan of care reviewed w/ patient, she understands/agrees Subjective Date of service: 04/02/18 Principal diagnosis: Xanax overdose Interval history: No events. SOB resolved. On RA. No chest pain. Active Medications Acetaminophen (Tylenol) 650 mg PO Q6H PRN PRN Reason: Pain, Mild (1-3) Last Admin: 04/01/18 21:10 Dose: 650 mg Albuterol/Ipratropium (Duoneb *Not For Prn Use*) 1 ampul IH TIDRT [facility] Last Admin: 04/02/18 14:52 Dose: 1 ampul Apixaban (Eliquis) 10 mg PO Q12HR [facility]; Protocol Last Admin: 04/02/18 09:05 Dose: 10 mg Ondansetron HCl (Zofran) 4 mg IV Q4H PRN PRN Reason: Nausea And Vomiting Pantoprazole Sodium (Protonix) 40 mg PO DAILY [facility] Last Admin: 04/02/18 09:05 Dose: 40 mg Phenol (Chloraseptic) 1 spray MM PRN PRN PRN Reason: Sore Throat Last Admin: 03/31/18 05:10 Dose: 1 spray Prednisone (Deltasone) 40 mg PO QDAY [facility] Last Admin: 04/02/18 09:09 Dose: 40 mg Objective Vital Signs - 12hr 04/02/18 04/02/18 04/02/18 04:17 05:29 07:24 Temperature 97.7 F Pulse Rate 113 H 75 75 Pulse Rate [ Anterior Bilateral Throughout] Respiratory 20 Rate Respiratory Rate [Anterior Bilateral Throughout] Blood Pressure 140/75 Blood Pressure [Right] O2 Sat by Pulse 95 Oximetry 04/02/18 04/02/18 04/02/18 08:33 08:50 08:55 Temperature 98.5 F Pulse Rate 76 Pulse Rate [ 71 80 Anterior Bilateral Throughout] Respiratory 14 Rate Respiratory 16 16 Rate [Anterior Bilateral Throughout] Blood Pressure Blood Pressure 146/77 [Right] O2 Sat by Pulse 96 Oximetry 04/02/18 04/02/18 04/02/18 11:46 14:50 14:56 Temperature 98.5 F Pulse Rate 98 H Pulse Rate [ 79 84 Anterior Bilateral Throughout] Respiratory 18 Rate Respiratory 16 18 Rate [Anterior Bilateral Throughout] Blood Pressure 191/98 Blood Pressure [Right] O2 Sat by Pulse 95 Oximetry Constitutional: no acute distress, alert Eyes: non-icteric ENT: oropharynx moist Neck: supple (no stridor) Effort: normal Ascultation: Bilateral: clear Percussion: Bilateral: not dull Cardiovascular: regular rate and rhythm Gastrointestinal: normoactive bowel sounds, soft, non-tender, non-distended Extremities: no cyanosis, no edema, pink and warm Neurologic: normal mental status, non-focal exam Psychiatric: mood appropriate, affect normal CBC and BMP: 04/01/18 05:22 04/01/18 05:22 ABG, PT/INR, D-dimer: ABG POC ABG pH 7.436 (7.35-7.45) 03/29/18 04:05 POC ABG pCO2 36.8 (35-45) 03/29/18 04:05 POC ABG pO2 221 (80-105) H 03/29/18 04:05 POC ABG HCO3 24.7 03/29/18 04:05 POC ABG Total CO2 26 03/29/18 04:05 POC ABG O2 Sat 100 03/29/18 04:05 PT/INR, D-dimer PT 10.8 Sec. (12.2-14.9) L 03/29/18 03:47 INR 0.74 (0.87-1.13) L 03/29/18 03:47 Abnormal lab findings: Abnormal Labs 03/29/18 03/29/18 03/29/18 01:26 01:26 03:47 WBC PT 10.8 L INR 0.74 L APTT 21.6 L POC ABG pO2 BUN Glucose Calcium Troponin T Triglycerides Cholesterol LDL Cholesterol Direct HDL Cholesterol Salicylates < 0.3 L Acetaminophen < 5.0 L 03/29/18 03/29/18 03/29/18 04:05 13:09 18:15 WBC PT INR APTT POC ABG pO2 221 H BUN Glucose Calcium Troponin T 0.749 H* D 0.378 H* D Triglycerides 196 H Cholesterol 219 H LDL Cholesterol Direct 169 H HDL Cholesterol 36 L Salicylates Acetaminophen 03/30/18 03/30/18 04/01/18 04:01 04:01 05:22 WBC 17.7 H PT INR APTT POC ABG pO2 BUN 19 H Glucose 111 H 108 H Calcium 7.6 L Troponin T Triglycerides Cholesterol LDL Cholesterol Direct HDL Cholesterol Salicylates Acetaminophen Chest x-ray: report reviewed, image reviewed CT scan - chest: report reviewed, image reviewed
--- NOTE | 2018-04-02 17:16 | Discharge Summary ---
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 -Toxic encephalopathy -xanax OD- unintentional Disposition: DC-30 STILL A PATIENT Time spent for discharge: 33 minutes Core Measure Documentation - Palliative Care Palliative Care/ Comfort Measures: Not Applicable - Core Measures Any of the following diagnoses?: DVT/PE - VTE Discharge Requirements Deep Vein Thrombosis/Pulmonary Embolism Present on Admission: Yes Has pt received <5 days of overlap therapy or INR<2.0: No Anticoagulant overlap therapy prescribed at discharge: No Contraindication No Overlap Therapy order at DC: Not Indicated Exam - Constitutional Vitals: Temp Pulse Resp BP Pulse Ox 98.5 F 84 18 191/98 95 04/02/18 11:46 04/02/18 14:56 04/02/18 14:56 04/02/18 11:46 04/02/18 11:46 General appearance: Present: no acute distress, well-nourished - EENT Eyes: Present: PERRL ENT: hearing intact, clear oral mucosa - Neck Neck: Present: supple, normal ROM - Respiratory Respiratory effort: normal Respiratory: bilateral: CTA - Cardiovascular Heart Sounds: Present: S1 & S2. Absent: rub, click - Extremities Extremities: pulses symmetrical, No edema Peripheral Pulses: within normal limits - Abdominal General gastrointestinal: Present: soft, non-tender, non-distended, normal bowel sounds Female genitourinary: Present: normal - Integumentary Integumentary: Present: clear, warm, dry - Musculoskeletal Musculoskeletal: gait normal, strength equal bilaterally - Psychiatric Psychiatric: appropriate mood/affect, intact judgment & insight - Neurologic Neurologic: CNII-XII intact, moves all extremities Plan Follow up with: PRIMARY CARE, [Primary Care Provider] - 7 Days
== END 2018-04-02 18:10 | disposition home or self-care (01) | DRG 917 ==
LOC: ED 00:57 → CC1 06:36 → 4A 03-30 16:04
PROVIDERS: ADMIT Internal Medicine; ATTEND Internal Medicine
PROC: 5A1935Z Respiratory Ventilation, Less than 24 Consecutive Hours (ICD-10-PCS; principal; 2018-03-29)
PROC: 0BH17EZ Insertion of Endotracheal Airway into Trachea, Via Natural or Artificial Opening (ICD-10-PCS; 2018-03-29)
PROC: 4A033R1 Measurement of Arterial Saturation, Peripheral, Percutaneous Approach (ICD-10-PCS; 2018-03-29)
DX: T42.4X1A Poisoning by benzodiazepines, accidental (unintentional), initial encounter (principal); G92 Toxic encephalopathy; J96.01 Acute respiratory failure with hypoxia; I26.99 Other pulmonary embolism without acute cor pulmonale; R45.851 Suicidal ideations; I82.409 Acute embolism and thrombosis of unspecified deep veins of unspecified lower extremity; F12.188 Cannabis abuse with other cannabis-induced disorder; G43.909 Migraine, unspecified, not intractable, without status migrainosus; K21.9 Gastro-esophageal reflux disease without esophagitis; F32.9 Major depressive disorder, single episode, unspecified; R07.89 Other chest pain; F13.10 Sedative, hypnotic or anxiolytic abuse, uncomplicated; Z71.89 Other specified counseling; Y92.89 Other specified places as the place of occurrence of the external cause
CPT/HCPCS: 36415; 70450; 71045; 71275; 78452; 80048; 80061; 80307; 80320; 81001; 82140; 82550; 82803; 82962; 84443; 84484; 85025; 85027; 85610; 85730; 87205; 93005; 93010; 93017; 93306; 93970; 94002; 94640; 94760; 96361; 96374; 96375; 99291; A9502; C9113; G0480; J0780; J1644; J2250; J2310; J2405; J2704; J2785; J3010; J7030; J7512; Q9967